=== PATIENT | female | born 1945 | race Caucasian/White ===

== ENCOUNTER 2017-08-11 14:59 | Inpatient (IN) ==
--- OUTSIDE RECORDS SUMMARY | 2017-08-11 15:07 | External Medical Summary | Referral Summary ---
:1945 Author Organization [facility] Address [address] [place] [address] [place] [address] Care Team Providers Name Role Phone Marcela Moss Primary Care Physician Encounter VC Date(s): 08/20/15 - 08/20/15 [facility] [place] [place] [phone] Discharge Diagnosis: Abdominal pain Discharge Disposition: 01-Home or Self Care Attending Physician: Marcela Moss DO Admitting Physician: Marcela Moss DO Vital Signs Most recent to oldest [Reference Range]: 1 Temperature Tympanic [36.6-38.1 degC] 36.9 degC (08/20/15 9:39 AM) Peripheral Pulse Rate [60-100 bpm] 78 bpm (08/20/15 9:39 AM) Respiratory Rate [14-20 br/min] 17 br/min (08/20/15 9:39 AM) Blood Pressure [90-140/60-90 mmHg] 120/80 mmHg (08/20/15 9:39 AM) SpO2 97 % (08/20/15 9:39 AM) Problem List Condition Effective Dates Status Health Status Informant Abdominal pain(Confirmed) Active Abnormal LFT(Confirmed) 2012 Active Anxiety(Confirmed) Active Arthralgia of the lower leg Active (finding)(Confirmed) Back pain(Confirmed) Active Backache (finding)(Confirmed) Active Cholecystitis(Confirmed) Resolved Hx of mild to moderate chronic Resolved interstitial cystitis(Confirmed) Chronic kidney disease(Confirmed) Active Chronic kidney disease stage 3 Active (disorder)(Confirmed) Hx of chronic pelvic pain, and Active urinary frequency, and urgency(Confirmed) Chronic trigonitis(Confirmed) Active Depression(Confirmed) Active Diabetes(Confirmed) Active Basal cell on chest(Confirmed) Active Dry eyes(Confirmed) Active ENTHESOPATHY OF HIP Active REGION(Confirmed) Fatigue(Confirmed) Resolved GERD(Confirmed) Active Goiter(Confirmed) Active High cholesterol(Confirmed) Active Hypothyroidism (disorder)(Confirmed) Active Hypothyroidism(Confirmed) Active Insomnia(Confirmed) Active Knee pain(Confirmed) Active Lumbosacral radiculopathy(Confirmed) Active DJD (degenerative joint disease) of Active knee(Confirmed) Overactive bladder(Confirmed) Active RUQ pain(Confirmed) 2012 Active Spinal stenosis, lumbar region, Active without neurogenic claudication(Confirmed) Thoracic or lumbosacral neuritis or Active radiculitis, unspecified(Confirmed) Hx of trabeculated Active bladder(Confirmed) Hx of obstructive urethral caruncle Active and cysts in cervix(Confirmed) Hx of urethral stenosis(Confirmed) Active Allergies, Adverse Reactions, Alerts No Known Allergies Medications ALPRAZolam 0.25 mg oral tablet 0.25 mg 1 tabs, Oral, TID, as needed for anxiety, mara riley, # 20 tabs, 3 Refill(s) Start Date: 02/15/16 Status: OrderedCeleXA 40 mg oral tablet 0.5 tabs, Oral, Daily, 0 Refill(s) Start Date: 05/02/14 Status: OrderedCITALOPRAM 40MG TAB See Instructions, TAKE ONE TABLET BY MOUTH EVERY DAY, # 90 tabs, 2 Refill(s), eRx: [facility] [id number], TAKE ONE TABLET BY MOUTH EVERY DAY Start Date: 11/25/14 Status: Orderedlevothyroxine 88 mcg (0.088 mg) oral tablet See Instructions, TAKE ONE TABLET BY MOUTH ONCE DAILY, # 90 tabs, 1 Refill(s), eRx: [facility], TAKE ONE TABLET BY MOUTH ONCE DAILY Start Date: 08/25/15 Status: Orderedlisinopril 10 mg oral tablet 10 mg 1 tabs, Oral, Daily, # 90 tabs, 1 Refill(s), Pharmacy: [facility] 2428, 1 tabs Oral Daily Start Date: 02/29/16 Status: Orderedmeloxicam 15 mg oral tablet 15 mg 1 tabs, Oral, Daily, # 15 tabs, 0 Refill(s), Pharmacy: [facility] 2428, 1 tabs Oral Daily Start Date: 10/26/15 Status: OrderedmetFORMIN 500 mg oral tablet See Instructions, 1 tabs Oral Daily,Instr:, # 90 tabs, 1 Refill(s), Pharmacy: [facility], 1 tabs Oral Daily,Instr: Start Date: 02/29/16 Status: OrderedMisc Medication vitamin B one daily, 0 Refill(s) Start Date: 05/12/14 Status: Orderedmultivitamin Daily, 0 Refill(s) Start Date: 05/12/14 Status: OrderedOsteo Bi-Flex Oral, Daily, 0 Refill(s) Start Date: 05/12/14 Status: OrderedPANTOPRAZOLE 40MG TAB See Instructions, TAKE ONE TABLET BY MOUTH EVERY DAY, # 90 tabs, 2 Refill(s), eRx: [facility] [id number], TAKE ONE TABLET BY MOUTH EVERY DAY Start Date: 07/29/14 Status: OrderedProtonix 40 mg oral delayed release tablet 40 mg 1 tabs, Oral, Daily, # 90 tabs, 3 Refill(s), Pharmacy: [facility], 1 tabs Oral Daily Start Date: 06/26/15 Status: OrderedVoltaren 1% topical gel 1 neha, Topical, QID, as needed for pain, # 100 g, 0 Refill(s), Pharmacy: [facility] Start Date: 11/17/15 Status: OrderedVoltaren 1% topical gel 1 neha, Topical, QID, # 100 g, 0 Refill(s) Start Date: 10/26/15 Status: Ordered Results No data available for this section Immunizations Vaccine Date Refusal Reason influenza virus vaccine, inactivated 07/01/14 pneumococcal 13-valent conjugate vaccine 08/03/15 pneumococcal 23-polyvalent vaccine 10/08/07 tetanus-diphth toxoids (Td) adult/adol 08/03/15 Procedures Procedure Date Related Diagnosis Body Site Right L4-5/L5-S1 Transforaminal 05/12/14 Laparoscopic cholecystectomy1 02/11/13 Right L5-S1 Transforminal injection 11/12/12 Colonoscopy Cystoscopy Hydrodistention and SLT laser vaporation and external urethral carunclectomy Tubal ligation 1Adenomyoma, benign, chronic cholecystitis Social History Social History Type Response Smoking Status Never smoker Assessment and Plan Extracted from: Title: Ambulatory Patient Education Author: Marcela Moss DO Date: 08/20/15 Emergency Medicine Abdominal Pain Many things can cause abdominal pain. Usually, abdominal pain is not caused by a disease and will improve without treatment. It can often be observed and treated at home. Your health care provider will do a physical exam and possibly order blood tests and X-rays to help determine the seriousness of your pain. However, in many cases, more time must pass before a clear cause of the pain can be found. Be fore that point, your health care provider may not know if you need more testing or further treatment. HOME CARE INSTRUCTIONS Monitor your abdominal pain for any changes. The following actions may help to alleviate any discomfort you are experiencing: Only take damr-lri-teizhtu or prescription medicines as directed by your health care provider. Do not take laxatives unless directed to do so by your health care provider. Try a clear liquid diet (broth, tea, or water) as directed by your health care provider. Slowly move to a bland diet as tolerated. SEEK MEDICAL CARE IF: You have unexplained abdominal pain. You have abdominal pain associated with nausea or diarrhea. You have pain when you urinate or have a bowel movement. You experience abdominal pain that wakes you in the night. You have abdominal pain that is worsened or improved by eating food. You have abdominal pain that is worsened with eating fatty foods. You have a fever. SEEK IMMEDIATE MEDICAL CARE IF: Your pain does not go away within 2 hours. You keep throwing up (vomiting). Your pain is felt only in portions of the abdomen, such as the right side or the left lower portion of the abdomen. You pass bloody or black tarry stools. MAKE SURE YOU: Understand these instructions. Will watch your condition. Will get help right away if you are not doing well or get worse. Document Released: 08/09/2006 Document Revised: 11/04/2014 Document Reviewed: 07/09/2014 ExitCare Patient Information 2015 [employer]. This information is not intended to replace advice given to you by your health care provider. Make sure you discuss any questions you have with your health care provider. No follow up information was provided. Extracted from: Title: Office Visit Note Author: Marcela Moss DO Date: 08/20/15 Assessment/Plan Abdominal pain Discussed anatomy and possible differential diagnosis. She certainly doesn't have an acute abdomen. After discussing options patient elected to go with MiraLAX and heat to her abd omen. A GI cocktail was offered and declined. Patient is to call or go to the emergency department with worsening symptoms such as increased pain or blood in her vomit or stool. She will let us know on Monday how she is doing. Ordered: Office Visit Level 3 Est 39905
--- OUTSIDE RECORDS SUMMARY | 2017-08-11 15:07 | External Medical Summary | Referral Summary ---
:1945 Author [facility] Address [address] [place] [address] [place] [address] Care Team Providers Name Role Phone Marcela Moss Primary Care Physician Encounter VC Date(s): 08/03/15 - 08/03/15 [facility] [place] [place] [phone] [place] Discharge Diagnosis: Anxiety Discharge Diagnosis: Depression Discharge Diagnosis: Hypothyroidism Discharge Disposition: 01-Home or Self Care Attending Physician: Marcela Moss DO Admitting Physician: Marcela Moss DO Vital Signs Most recent to oldest [Reference Range]: 1 Temperature Tympanic [36.6-38.1 degC] 36.9 degC (08/03/15 10:04 AM) Peripheral Pulse Rate [60-100 bpm] 89 bpm (08/03/15 10:04 AM) Respiratory Rate [14-20 br/min] 16 br/min (08/03/15 10:04 AM) Blood Pressure [90-140/60-90 mmHg] 120/68 mmHg (08/03/15 10:04 AM) SpO2 97 % (08/03/15 10:04 AM) Problem List Condition Effective Dates Status [...] # 20 tabs, 3 Refill(s) Start Date: 06/26/15 Status: OrderedCeleXA 40 mg oral tablet 0.5 tabs, Oral, Daily, 0 Refill(s) Start Date: 05/02/14 Status: OrderedCITALOPRAM 40MG TAB See Instructions, TAKE ONE TABLET BY MOUTH EVERY DAY, # 90 tabs, 2 Refill(s), eRx: [facility] [id number], TAKE ONE TABLET BY MOUTH EVERY DAY Start Date: 11/25/14 Status: Orderedlevothyroxine 88 mcg (0.088 mg) oral tablet See Instructions, TAKE ONE TABLET BY MOUTH ONCE DAILY, # 90 tabs, 1 Refill(s), eRx: [facility], TAKE ONE TABLET BY MOUTH ONCE DAILY Start Date: 08/25/15 Status: Orderedlisinopril 10 mg oral tablet 10 mg 1 tabs, Oral, Daily, # 90 tabs, 1 Refill(s), Pharmacy: [facility], 1 tabs Oral Daily Start Date: 08/25/15 Status: Orderedmeloxicam 15 mg oral tablet 15 mg 1 tabs, Oral, Daily, # 15 tabs, 0 Refill(s), Pharmacy: [facility], 1 tabs Oral Daily Start Date: 10/26/15 Status: OrderedmetFORMIN 500 mg oral tablet See Instructions, 1 tabs Oral Daily,Instr:PT. NEEDS AN APPT. , # 90 tabs, eRx: [facility], 1 tabs Oral Daily,Instr:PT. NEEDS AN APPT. Start Date: 12/10/15 Status: OrderedMisc Medication vitamin B one daily, 0 Refill(s) Start Date: 05/12/14 Status: Orderedmultivitamin Daily, 0 Refill(s) Start Date: 05/12/14 Status: OrderedOsteo Bi-Flex Oral, Daily, 0 Refill(s) Start Date: 05/12/14 Status: OrderedPANTOPRAZOLE 40MG TAB See Instructions, TAKE ONE TABLET BY MOUTH EVERY DAY, # 90 tabs, 2 Refill(s), eRx: [facility] [id number], TAKE ONE TABLET BY MOUTH EVERY DAY Start Date: 07/29/14 Status: OrderedProtonix 40 mg oral delayed release tablet 40 mg 1 tabs, Oral, Daily, # 90 tabs, 3 Refill(s), Pharmacy: [facility], 1 tabs Oral Daily Start Date: 06/26/15 Status: OrderedVoltaren 1% topical gel 1 neha, Topical, QID, as needed for pain, # 100 g, 0 Refill(s), Pharmacy: [facility] Start Date: 11/17/15 Status: OrderedVoltaren [...] Patient Education Author: Marcela Moss DO Date: 08/03/15 Family Medicine Hypothyroidism The thyroid is a large gland located in the lower front of your neck. The thyroid gland helps control metabolism. Metabolism is how your body handles food. It controls metabolism with the hormone thyrox ine. When this gland is underactive (hypothyroid), it produces too little hormone. CAUSES These include: Absence or destruction of thyroid tissue. Goiter due to iodine deficiency. Goiter due to medications. Congenital defects (since ). Problems with the pituitary. This causes a lack of TSH (thyroid stimulating hormone). This hormone tells the thyroid to collar turner more hormone. SYMPTOMS Lethargy (feeling as though you have no energy) Cold intolerance Weight gain (in spite of normal food intake) Dry skin Coarse hair Menstrual irregularity (if severe, may lead to infertility) Slowing of thought processes Cardiac problems are also caused by insufficient amounts of thyroid hormone. Hypothyroidism in the is cretinism, and is an extreme form. It is important that this form be treated adequately and immediately or it will lead rapidly to retarded physical and mental development. DIAGNOSIS To prove hypothyroidism, your caregiver may do blood tests and ultrasound tests. Sometimes the signs are hidden. It may be necessary for your caregiver to watch this illness with blood tests either before or after diagnosis and treatment. TREATMENT Low levels of thyroid hormone are increased by using synthetic thyroid hormone. This is a safe, effective treatment. It usually takes about four weeks to gain the full effects of the medication. After y ou have the full effect of the medication, it will generally take another four weeks for problems to leave. Your caregiver may start you on low doses. If you have had heart problems the dose may be grad ually increased. It is generally not an emergency to get rapidly to normal. HOME CARE INSTRUCTIONS Take your medications as your caregiver suggests. Let your caregiver know of any medications you are taking or start taking. Your caregiver will help you with dosage schedules. As your condition improves, your dosage needs may increase. It will be necessary to have continuing blood tests as suggested by your caregiver. Report all suspected medication side effects to your caregiver. SEEK MEDICAL CARE IF: Seek medical care if you develop: Sweating. Tremulousness (tremors). Anxiety. Rapid weight loss. Heat intolerance. Emotional swings. Diarrhea. Weakness. SEEK IMMEDIATE MEDICAL CARE IF: You develop chest pain, an irregular heart beat (palpitations), or a rapid heart beat. MAKE SURE YOU: Understand these instructions. Will watch your condition. Will get help right away if you are not doing well or get worse. Document Released: 10/30/2006 Document Revised: 01/21/2013 Document Reviewed: 06/19/2009 ExitCare Patient Information 2015 [employer]. This information is not intended to replace advice given to you by your health care provider. Make sure you discuss any questions you have with your health care provider. No follow up information was provided. Extracted from: Title: Office Visit Note Author: Marcela Moss DO Date: 08/03/15 Assessment/Plan Anxiety stable, continue xanax as needed Ordered: Office Visit Level 4 Est 70594 Depression stable , offered counseling if she needed it, declines at this time. Ordered: Office Visit Level 4 Est 70334 Hypothyroidism doing well, continue current medication, RTC 6 mo with labs to recheck. Ordered: Office Visit Level 4 Est 82499 Immunization due tdap and pcv 13 today.
--- OUTSIDE RECORDS SUMMARY | 2017-08-11 15:07 | External Medical Summary | Referral Summary ---
:1945 Author [facility] Address [address] [place] [address] [place] [phone] Care Team Providers Name Role Phone Marcela Moss Primary Care Physician Encounter VC Date(s): 10/26/15 - 10/26/15 [facility] [place] [place] [phone] [place] Discharge Disposition: 01-Home or Self Care Attending Physician: Catalino Loving APRN Admitting Physician: Catalino Loving APRN Vital Signs Most recent to oldest [Reference Range]: 1 Peripheral Pulse Rate [60-100 bpm] 87 bpm (10/26/15 10:08 AM) Respiratory Rate [14-20 br/min] 18 br/min (10/26/15 10:08 AM) Blood Pressure [90-140/60-90 mmHg] 130/90 mmHg (10/26/15 10:08 AM) SpO2 98 % (10/26/15 10:08 AM) Problem List Condition Effective Dates Status [...] DAY, # 90 tabs, 2 Refill(s), eRx: [id number], TAKE ONE TABLET BY MOUTH EVERY DAY Start Date: 11/25/14 Status: Orderedlevothyroxine 88 mcg (0.088 mg) oral tablet See Instructions, TAKE ONE TABLET BY MOUTH ONCE DAILY, # 90 tabs, 1 Refill(s), eRx: [facility] 2428, TAKE ONE TABLET BY MOUTH ONCE DAILY Start Date: 08/25/15 Status: Orderedlisinopril 10 mg oral tablet 10 mg 1 tabs, Oral, Daily, # 90 tabs, 1 Refill(s), Pharmacy: [facility], 1 tabs Oral Daily Start Date: 08/25/15 Status: Orderedmeloxicam 15 mg oral tablet 15 mg 1 tabs, Oral, Daily, # 15 tabs, 0 Refill(s), Pharmacy: [facility], 1 tabs Oral Daily Start Date: 10/26/15 Status: OrderedmetFORMIN 500 mg oral tablet See Instructions, 1 tabs Oral Daily,Instr:PT. NEEDS AN APPT. /AUG., # 90 tabs, eRx: [facility], 1 tabs Oral Daily,Instr:PT. NEEDS AN APPT. Start Date: 09/14/15 Status: OrderedMisc Medication vitamin B one daily, 0 Refill(s) Start Date: 05/12/14 Status: Orderedmultivitamin Daily, 0 Refill(s) Start Date: 05/12/14 Status: OrderedOsteo Bi-Flex Oral, Daily, 0 Refill(s) Start Date: 05/12/14 Status: OrderedPANTOPRAZOLE 40MG TAB See Instructions, TAKE ONE TABLET BY MOUTH EVERY DAY, # 90 tabs, 2 Refill(s), eRx: [facility] [id number], TAKE ONE TABLET BY MOUTH EVERY DAY Start Date: 07/29/14 Status: OrderedProtonix 40 mg oral delayed release tablet 40 mg 1 tabs, Oral, Daily, # 90 tabs, 3 Refill(s), Pharmacy: [facility], 1 tabs Oral Daily [...] Smoking Status Never smoker Assessment and Plan No data available for this section
--- OUTSIDE RECORDS SUMMARY | 2017-08-11 15:07 | External Medical Summary | Referral Summary ---
:1945 Author Organization [facility] Address [address] [place] [address] Care Team Providers Name Role Phone Marcela Moss Primary Care Physician Encounter VC Date(s): 09/01/15 - 09/01/15 [facility] [address] [place] [address]- [phone] Discharge Diagnosis: Lumbosacral radiculopathy Discharge Diagnosis: Spinal stenosis, lumbar region, without neurogenic claudication Discharge Disposition: 01-Home or Self Care Attending Physician: Jhon Cali MD Admitting Physician: Jhon Cali MD Referring Physician: Marcela Moss DO Vital Signs Most recent to oldest [Reference Range]: 1 Respiratory Rate [14-20 br/min] 16 br/min (09/01/15 9:27 AM) SpO2 99 % (09/01/15 9:27 AM) Problem List Condition Effective Dates Status [...] DAY, # 90 tabs, 2 Refill(s), eRx: [facility] [id number], TAKE ONE TABLET BY MOUTH EVERY DAY Start Date: 11/25/14 Status: Orderedlevothyroxine 88 mcg (0.088 mg) oral tablet See Instructions, TAKE ONE TABLET BY MOUTH ONCE DAILY, # 90 tabs, 1 Refill(s), eRx: [facility], TAKE ONE TABLET BY MOUTH ONCE DAILY Start Date: 08/25/15 Status: Orderedlisinopril 10 mg oral tablet 10 mg 1 tabs, Oral, Daily, # 90 tabs, 1 Refill(s), Pharmacy: [facility], 1 tabs Oral Daily Start Date: 02/29/16 Status: Orderedmeloxicam 15 mg oral tablet 15 mg 1 tabs, Oral, Daily, # 15 tabs, 0 Refill(s), Pharmacy: [facility], 1 tabs Oral Daily Start Date: 10/26/15 Status: OrderedmetFORMIN 500 mg oral tablet See Instructions, 1 tabs Oral Daily,Instr:, # 90 tabs, 1 Refill(s), Pharmacy: [facility], 1 tabs Oral Daily,Instr: Start Date: 02/29/16 Status: OrderedMisc Medication vitamin B one daily, 0 Refill(s) Start Date: 05/12/14 Status: Orderedmultivitamin Daily, 0 Refill(s) Start Date: 05/12/14 Status: OrderedOsteo Bi-Flex Oral, Daily, 0 Refill(s) Start Date: 05/12/14 Status: OrderedPANTOPRAZOLE 40MG TAB See Instructions, TAKE ONE TABLET BY MOUTH EVERY DAY, # 90 tabs, 2 Refill(s), eRx: [facility] [id number], TAKE ONE TABLET BY MOUTH EVERY DAY Start Date: 07/29/14 Status: OrderedProtonix 40 mg oral delayed release tablet 40 mg 1 tabs, Oral, Daily, # 90 tabs, 3 Refill(s), Pharmacy: [facility], 1 tabs Oral Daily Start Date: 06/26/15 Status: OrderedVoltaren 1% topical gel 1 neha, Topical, QID, as needed for pain, # 100 g, 0 Refill(s), Pharmacy: [facility] Start Date: 11/17/15 Status: OrderedVoltaren 1% topical gel 1 neha, Topical, QID, # 100 g, 0 Refill(s) Start Date: 10/26/15 Status: Ordered Results No data available for this section Immunizations Vaccine Date Refusal Reason influenza virus vaccine, inactivated 07/01/14 pneumococcal 13-valent conjugate vaccine 08/03/15 pneumococcal 23-polyvalent vaccine 10/08/07 tetanus-diphth toxoids (Td) adult/adol 08/03/15 Procedures Procedure Date Related Diagnosis Body Site Injection(s), anesthetic agent and/or steroid, 09/01/15 transforaminal epidural, with imaging guidance (fluoroscopy or CT); lumbar or sacral, each additional level (List separately in addition to code for primary procedure)..... Injection(s), anesthetic agent and/or steroid, 09/01/15 transforaminal epidural, with imaging guidance (fluoroscopy or CT); lumbar or sacral, single level Right L4-5/L5-S1 Transforaminal 05/12/14 Laparoscopic cholecystectomy1 02/11/13 Right L5-S1 Transforminal injection 11/12/12 Colonoscopy Cystoscopy Hydrodistention and SLT laser vaporation and external urethral carunclectomy Tubal ligation 1Adenomyoma, benign, chronic cholecystitis Social History Social History Type Response Smoking Status Never smoker Assessment and Plan Extracted from: Title: Ambulatory Patient Education Author: Marisol Fuentes RN Date: 09/01/15 Procedures Epidural Steroid Injection An epidural steroid injection is given to relieve pain in your neck, back, or legs that is caused by the irritation or swelling of a nerve root. This procedure involves injecting a steroid and numbing m edicine (anesthetic) into the epidural space. The epidural space is the space between the outer covering of your spinal cord and the bones that form your backbone (vertebra). LET YOUR HEALTH CARE PROVIDER KNOW ABOUT: Any allergies you have. All medicines you are taking, including vitamins, herbs, eye drops, creams , and [id number] medicines such as aspirin. Previous problems you or members of your family have had with the use of anesthetics. Any blood disorders or blood clotting disorders you have. Previous surgeries you have had. Medical conditions you have. RISKS AND COMPLICATIONS Generally, this is a safe procedure. However, as with any procedure, complications can occur. Possible complications of epidural steroid injection include: Headache. Bleeding. Infection. Allergic reaction to the medicines. Damage to your nerves. The response to this procedure depends on the underlying cause of the pain and its duration. People who have long-term (chronic) pain are less likely to benefit from epidural steroids than are those people whose pain comes on strong and suddenly. BEFORE THE PROCEDURE Ask your health care provider about changing or stopping your regular medicines. You may be advised to stop taking blood-thinning medicines a few days before the procedure. You may be given medicines to reduce anxiety. Arrange for someone to take you home after the procedure. PROCEDURE You will remain awake during the procedure. You may receive medicine to make you relaxed. You will be asked to lie on your stomach. The injection site will be cleaned. The injection site will be numbed with a medicine (local anesthetic). A needle will be injected through your skin into the epidural space. Your health care provider will use an X-ray machine to ensure that the steroid is delivered closest to the affected nerve. You may have minimal discomfort at this time. Once the needle is in the right position, the local anesthetic and the steroid will be injected into the epidural space. The needle will then be removed and a bandage will be applied to the injection site. AFTER THE PROCEDURE You may be monitored for a short time before you go home. You may feel weakness or numbness in your arm or leg, which disappears within hours. You may be allowed to eat, drink, and take your regular medicine. You may have soreness at the site of the injection. Document Released: 02/05/2009 Document Revised: 07/02/2014 Document Reviewed: 04/18/2014 [employer] Patient Information 2015 test company [facility]. This information is not intended to replace advice given to you by your health care provider. Make sure you discuss any questions you have with your health care provider. No follow up information was provided.
--- OUTSIDE RECORDS SUMMARY | 2017-08-11 15:07 | External Medical Summary | Referral Summary ---
:1945 Author Organization [facility] Address [address] [place] [address] [place] [address] Care Team Providers Name Role Phone Marcela Moss Primary Care Physician Encounter VC Date(s): 08/16/16 - 08/16/16 [facility] [place] [address] Discharge Diagnosis: Chronic kidney disease Discharge Diagnosis: Hypothyroidism (disorder) Discharge Diagnosis: Depression Discharge Diagnosis: Diabetes Discharge Disposition: 01-Home or Self Care Attending Physician: Marcela Moss DO Admitting Physician: Marcela Moss DO Vital Signs Most recent to oldest [Reference Range]: 1 Temperature Tympanic [36.6-38.1 degC] 36.9 degC (08/16/16 10:20 AM) Peripheral Pulse Rate [60-100 bpm] 80 bpm (08/16/16 10:20 AM) Respiratory Rate [14-20 br/min] 17 br/min (08/16/16 10:20 AM) Blood Pressure [90-140/60-90 mmHg] 128/70 mmHg (08/16/16 10:20 AM) SpO2 98 % (08/16/16 10:20 AM) Problem List Condition Effective Dates Status [...] Daily, 0 Refill(s) Start Date: 05/02/14 Status: Orderedlevothyroxine 88 mcg (0.088 mg) oral tablet See Instructions, TAKE ONE TABLET BY MOUTH ONCE DAILY, # 90 tabs, 1 Refill(s), Pharmacy: [place] [id number], TAKE ONE TABLET BY MOUTH ONCE DAILY Start Date: 03/18/16 Status: OrderedmetFORMIN 500 mg oral tablet See Instructions, 1 tabs Oral Daily,Instr:, # 90 tabs, 1 Refill(s), Pharmacy: [facility] 24[facility], 1 tabs Oral Daily,Instr: Start Date: 02/29/16 Status: Orderedpantoprazole 40 mg oral delayed release tablet See Instructions, TAKE ONE TABLET BY MOUTH ONCE DAILY, # 90 tabs, eRx: [facility] 2428, TAKE ONE TABLET BY MOUTH ONCE DAILY Start Date: 06/29/16 Status: OrderedVoltaren 1% topical gel 1 neha, Topical, QID, as needed for pain, # 100 g, 0 Refill(s), Pharmacy: [place] [address] Start Date: 11/17/15 Status: Ordered Results Chemistry Most recent to oldest [Reference Range]: 1 Sodium Lvl [135-144 mEq/L] 142 mEq/L (08/16/16 10:56 AM) Potassium Lvl [3.5-5.2 mEq/L] 4.1 mEq/L (08/16/16 10:56 AM) Chloride [99-111 mEq/L] 107 mEq/L (08/16/16 10:56 AM) CO2 [22-31 mEq/L] 26 mEq/L (08/16/16 10:56 AM) AGAP [3-20] 9 (08/16/16 10:56 AM) BUN [10-20 mg/dL] 9 mg/dL *LOW* (08/16/16 10:56 AM) Glucose Lvl [70-99 mg/dL] 107 mg/dL *HI* (08/16/16 10:56 AM) Creatinine Lvl [0.57-1.11 mg/dL] 0.87 mg/dL (08/16/16 10:56 AM) eGFR [>60 mL/min] >60 mL/min 1 (08/16/16 10:56 AM) Calcium Lvl [8.9-10.5 mg/dL] 9.4 mg/dL (08/16/16 10:56 AM) Hgb A1c [4.1-5.6 %] 6.0 % *HI* (08/16/16 10:56 AM) eAvg Glucose 125.5 mg/dL (08/16/16 10:56 AM) 1Result Comment: Multiply eGFR results by 1.21 for race. Immunizations Vaccine Date Refusal Reason influenza virus [...] smoker Assessment and Plan Extracted from: Title: Office Visit Note Author: Marcela Moss DO Date: 08/16/16 Assessment/Plan Chronic kidney disease BMP today, further recommendations after results, if results are notbothersome return to clinic in 6 months. Ordered: Office Visit Level 4 Est 78619 Depression Continue current regimen. Return to clinic 6 months. Ordered: Office Visit Level 4 Est 11052 Diabetes BMP and A1c today with further recommendations after results, if A1c continues in control she will return to clinic in 6 months. Ordered: Basic Metabolic Panel Hemoglobin A1c Office Visit Level 4 Est 37514 Hypothyroidism (disorder) Stable, return to clinic in 6 months with labs at that time. Ordered: Office Visit Level 4 Est 25222 Extracted from: Title: Ambulatory Patient Education Author: Marcela Moss DO Date: 08/16/16 Family Medicine Diabetes Mellitus and Food It is important for you to manage your blood sugar (glucose) level. Your blood glucose level can be greatly affected by what you eat. Eating healthier foods in the appropriate amounts throughout the day at about the same time each day will help you control your blood glucose level. It can also help slow or prevent worsening of your diabetes mellitus. Healthy eating may even help you improve the level of your blood pressure and reach or maintain a healthy weight. General recommendations for healthful eating and cooking habits include: Eating meals and snacks regularly. Avoid going long periods of time without eating to lose weight. Eating a diet that consists mainly of plant-based foods, such as fruits , vegetables, nuts, legumes, and whole grains. Using low-heat cooking methods, such as baking, instead of high-heat cooking methods, such as deep frying. Work with your dietitian to make sure you understand how to use the Nutrition Facts information on food labels. HOW CAN FOOD AFFECT ME? Carbohydrates Carbohydrates affect your blood glucose level more than any other type of food. Your dietitian will help you determine how many carbohydrates to eat at each meal and teach you how to count carbohydrates . Counting carbohydrates is important to keep your blood glucose at a healthy level, especially if you are using insulin or taking certain medicines for diabetes mellitus. Alcohol Alcohol can cause sudden decreases in blood glucose (hypoglycemia), especially if you use insulin or take certain medicines for diabetes mellitus. Hypoglycemia can be a life-threatening condition. Sympt oms of hypoglycemia (sleepiness, dizziness, and disorientation) are similar to symptoms of having too much alcohol. If your health care provider has given you approval to drink alcohol, do so in moderation and use the following guidelines: Women should not have more than one drink per day, and men should not have more than two drinks per day. One drink is equal to: 12 oz of beer. 5 oz of wine. 1 oz of hard liquor. Do not drink on an empty stomach. Keep yourself hydrated. Have water, diet soda, or unsweetened iced tea. Regular soda, juice, and other mixers might contain a lot of carbohydrates and should be counted. WHAT FOODS ARE NOT RECOMMENDED? As you make food choices, it is important to remember that all foods are not the same. Some foods have fewer nutrients per serving than other foods, even though they might have the same number of calori es or carbohydrates. It is difficult to get your body what it needs when you eat foods with fewer nutrients. Examples of foods that you should avoid that are high in calories and carbohydrates but low in nutrients include: Trans fats (most processed foods list trans fats on the Nutrition Facts label). Regular soda. Juice. Candy. Sweets, such as cake, pie, doughnuts, and cookies. Fried foods. WHAT FOODS CAN I EAT? Eat nutrient-rich foods, which will nourish your body and keep you healthy. The food you should eat also will depend on several factors, including: The calories you need. The medicines you take. Your weight. Your blood glucose level. Your blood pressure level. Your cholesterol level. You should eat a variety of foods, including: Protein. Lean cuts of meat. Proteins low in saturated fats, such as fish, egg whites, and beans. Avoid processed meats. Fruits and vegetables. Fruits and vegetables that may help control blood glucose levels, such as apples, mangoes, and yams. Dairy products. Choose fat-free or low-fat dairy products, such as milk, yogurt, and cheese. Grains, bread, pasta, and rice. Choose whole grain products, such as multigrain bread, whole oats, and brown rice. These foods may help control blood pressure. Fats. Foods containing healthful fats, such as nuts, avocado, olive oil, canola oil, and fish. DOES EVERYONE WITH DIABETES MELLITUS HAVE THE SAME MEAL PLAN? Because every person with diabetes mellitus is different, there is not one meal plan that works for everyone. It is very important that you meet with a dietitian who will help you create a meal plan that is just right for you. This information is not intended to replace advice given to you by your health care provider. Make sure you discuss any questions you have with your health care provider. Document Released: 07/27/2006 Document Revised: 11/20/2015 Document Reviewed: 09/26/2014 [employer] Patient Information 2016 [employer], [facility]. No follow up information was provided.
--- OUTSIDE RECORDS SUMMARY | 2017-08-11 15:07 | External Medical Summary | Referral Summary ---
:1945 Author Organization [facility] Address [address] [place] [address] Care Team Providers Name Role Phone Marcela Moss Primary Care Physician Encounter VC Date(s): 09/15/15 - 09/15/15 [facility] [address] [place] [address]- [phone] Discharge Diagnosis: ENTHESOPATHY OF HIP REGION Discharge Disposition: 01-Home or Self Care Attending Physician: Jhon Cali MD Admitting Physician: Jhon Cali MD Referring Physician: Marcela Moss DO Vital Signs No data available for this section Problem List Condition Effective Dates Status Health Status Informant Abdominal pain(Confirmed) Active Abnormal LFT(Confirmed) 2013 Active Anxiety(Confirmed) Active Arthralgia of the lower [...] Active knee(Confirmed) Overactive bladder(Confirmed) Active RUQ pain(Confirmed) 2013 Active Spinal stenosis, lumbar region, Active without [...] DAY, # 90 tabs, 2 Refill(s), eRx: [facility] [id number], TAKE ONE TABLET BY MOUTH EVERY DAY Start Date: 11/25/14 Status: Orderedlevothyroxine 88 mcg (0.088 mg) oral tablet See Instructions, TAKE ONE TABLET BY MOUTH ONCE DAILY, # 90 tabs, 1 Refill(s), eRx: [facility], TAKE ONE TABLET BY MOUTH ONCE DAILY Start Date: 08/25/15 Status: Orderedlisinopril 10 mg oral tablet 10 mg 1 tabs, Oral, Daily, # 90 tabs, 1 Refill(s), Pharmacy: [facility], 1 tabs Oral Daily Start Date: 08/25/15 Status: OrderedmetFORMIN 500 mg oral tablet See Instructions, 1 tabs Oral Daily,Instr:PT. NEEDS AN APPT. , # 90 tabs, eRx: [facility], 1 tabs Oral Daily,Instr:PT. NEEDS AN APPT. Start Date: 09/14/15 Status: OrderedMisc Medication vitamin B one daily, 0 Refill(s) Start Date: 05/12/14 Status: Orderedmultivitamin Daily, 0 Refill(s) Start Date: 05/12/14 Status: OrderedOsteo Bi-Flex Oral, Daily, 0 Refill(s) Start Date: 05/12/14 Status: OrderedPANTOPRAZOLE 40MG TAB See Instructions, TAKE ONE TABLET BY MOUTH EVERY DAY, # 90 tabs, 2 Refill(s), eRx: [facility] [id number], TAKE ONE TABLET BY MOUTH EVERY DAY Start Date: 07/29/14 Status: OrderedProtonix 40 mg oral delayed release tablet 40 mg 1 tabs, Oral, Daily, # 90 tabs, 3 Refill(s), Pharmacy: [facility], 1 tabs Oral Daily Start Date: 06/26/15 Status: Ordered Results No data available for this section Immunizations Vaccine Date Refusal Reason influenza virus vaccine, inactivated 07/01/14 pneumococcal 13-valent conjugate vaccine 08/03/15 pneumococcal 23-polyvalent vaccine 10/08/07 tetanus-diphth toxoids (Td) adult/adol 08/03/15 Procedures Procedure Date Related Diagnosis Body Site Arthrocentesis, aspiration and/or injection, 09/15/15 major joint or bursa (eg, shoulder, hip, knee, subacromial bursa); without ultrasound guidance Right L4-5/L5-S1 Transforaminal 05/12/14 Laparoscopic cholecystectomy1 02/11/13 Right L5-S1 Transforminal injection 11/12/12 Colonoscopy Cystoscopy Hydrodistention and SLT laser vaporation and external urethral carunclectomy Tubal ligation 1Adenomyoma, benign, chronic cholecystitis Social History Social History Type Response Smoking Status Never smoker Assessment and Plan No data available for this section
--- OUTSIDE RECORDS SUMMARY | 2017-08-11 15:07 | External Medical Summary | Referral Summary ---
:1945 Author Organization [facility] Address [address] [place] [address] Care Team Providers Name Role Phone Marcela Moss Primary Care Physician Encounter VC Date(s): 08/27/15 - 08/27/15 [facility] [address] [place] [address]- [phone] Discharge Diagnosis: Lumbar radiculopathy Discharge Diagnosis: Trochanteric bursitis Discharge Diagnosis: Lumbago Discharge Diagnosis: Disc degeneration, lumbar Discharge Diagnosis: Spinal stenosis, lumbar region, without neurogenic claudication Discharge Disposition: 01-Home or Self Care Attending Physician: Hussein Mclain Admitting Physician: Hussein Mclain Vital Signs Most recent to oldest [Reference Range]: 1 Blood Pressure [90-140/60-90 mmHg] 120/80 mmHg (08/27/15 9:37 AM) Problem List Condition Effective Dates Status [...] Hypothyroidism(Confirmed) Active Insomnia(Confirmed) Active Knee pain(Confirmed) Active DJD (degenerative joint disease) of Active [...] # 90 tabs, 2 Refill(s), eRx: [facility] [id number], TAKE ONE TABLET BY MOUTH EVERY DAY Start Date: 11/25/14 Status: Orderedlevothyroxine 88 mcg (0.088 mg) oral tablet See Instructions, TAKE ONE TABLET BY MOUTH ONCE DAILY, # 90 tabs, 1 Refill(s), eRx: [facility], TAKE ONE TABLET BY MOUTH ONCE DAILY Start Date: 08/25/15 Status: Orderedlisinopril 10 mg oral tablet 10 mg 1 tabs, Oral, Daily, # 90 tabs, 1 Refill(s), Pharmacy: [facility], 1 tabs Oral Daily Start Date: 08/25/15 Status: OrderedmetFORMIN 500 mg oral tablet 500 mg 1 tabs, Oral, Daily, PT. NEEDS AN APPT. /AUG., # 90 tabs, 0 Refill(s ), Pharmacy: [facility], PT. NEEDS AN APPT. IN /AUG., 1 tabs Oral Daily,Instr:PT. NEEDS AN APPT. /AUG. Start Date: 06/30/15 Status: OrderedMisc Medication vitamin B one daily, 0 Refill(s) Start Date: 05/12/14 Status: Orderedmultivitamin Daily, 0 Refill(s) Start Date: 05/12/14 Status: OrderedOsteo Bi-Flex Oral, Daily, 0 Refill(s) Start Date: 05/12/14 Status: OrderedPANTOPRAZOLE 40MG TAB See Instructions, TAKE ONE TABLET BY MOUTH EVERY DAY, # 90 tabs, 2 Refill(s), eRx: [facility] [id number], TAKE ONE TABLET BY MOUTH EVERY DAY Start Date: 07/29/14 Status: OrderedProtonix 40 mg oral delayed release tablet 40 mg 1 tabs, Oral, Daily, # 90 tabs, 3 Refill(s), Pharmacy: [facility], 1 tabs Oral Daily Start [...] Extracted from: Title: Office Visit Note Author: Hussein Mclain Date: 08/27/15 Assessment/Plan Disc degeneration, lumbar Lumbago Lumbar radiculopathy Spinal stenosis, lumbar region, without neurogenic claudication Trochanteric bursitis I discussed the patient's plan of care with Dr. Cali. I also reviewed the patient's most recent lumbar MRI with the patient and also reviewed this with Dr. Cali. According to this MRI the patient has d egenerative discs with disc bulging L5-S1 asymmetrically into the base the right neuroforamen with moderate narrowing of the neuroforamen. L4 5 showing severe disc space noting with disc bulgingmild narrowing of the right neuroforamen. I also reviewed her x-ray results from her knees and hips and showing osteoarthritic changes in the knees as well as in the right hip. Clinically she does not a ppear to have any significant symptoms in the actual hip joint but seems to have a combination of lumbar radiculopathy as well as right trochanteric bursitis. She did benefit from previous lumbar epid uralby greater than 50 percent for approximately a year. Dr. Cali recommends proceeding withrepeating her right L4 5 and L5-S1 transforaminal epidural steroid injectionfollowed by right trochanteric bursitis injection under ultrasound. The patient does u nderstand the rationale for the procedure as well as possible complications including bleeding, infection, allergic reaction, nerve irritation or damage, and risk of spinal headache. The patient also un derstands other remote possible complications including paraplegia, quadriplegia, , stroke, and seizure. The patient voiced understanding and wishes to proceed.The patient requests a local anesth etic. The patient will follow-up in 2 months following the injection. If the patient fails to improve or worsening symptoms, they will follow-up sooner. 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 If this doeshelp and she wants to continue she will plan on checking with her primary care for prescription. She can not take oral NSAIDs because of her chronic kidney disease. The patient voiced understanding and agrees to the above plan. The above was in discussion with Dr. Cali.
--- OUTSIDE RECORDS SUMMARY | 2017-08-11 15:07 | External Medical Summary | Referral Summary ---
:1945 Author Organization [facility] Address [address] [place] [address] [place] [address] Care Team Providers Name Role Phone Marcela Moss Primary Care Physician Encounter VC Date(s): 08/20/15 - 08/20/15 [facility] [address] [place] [address] Discharge Diagnosis: [...] # 90 tabs, 2 Refill(s), eRx: [facility] [id number], TAKE ONE TABLET BY MOUTH EVERY DAY Start Date: 11/25/14 Status: Orderedeszopiclone 1 mg oral tablet 1 mg 1 tabs, Oral, Bedtime (once a day), as needed for insomnia, Yoana Galan, # 30 tabs, 0 Refill(s) Start Date: 03/31/15 Status: Orderedlisinopril 10 mg oral tablet 1 tabs, Oral, Daily, # 90 tabs, 3 Refill(s), Pharmacy: [facility], 1 tabs Oral Daily Start Date: 07/03/14 Status: OrderedmetFORMIN 500 mg oral tablet 500 mg 1 tabs, Oral, Daily, PT. NEEDS AN APPT. /AUG., # 90 tabs, 0 Refill(s ), Pharmacy: [facility], PT. NEEDS AN APPT. IN /, 1 tabs Oral Daily,Instr:PT. NEEDS AN APPT. /AUG. Start Date: 06/30/15 Status: OrderedMisc Medication vitamin B one daily, 0 Refill(s) Start Date: 05/12/14 Status: Orderedmultivitamin Daily, 0 Refill(s) Start Date: 05/12/14 Status: OrderedOsteo Bi-Flex Oral, Daily, 0 Refill(s) Start Date: 05/12/14 Status: OrderedPANTOPRAZOLE 40MG TAB See Instructions, TAKE ONE TABLET BY MOUTH EVERY DAY, # 90 tabs, 2 Refill(s), eRx: [facility] [id number], TAKE ONE TABLET BY MOUTH EVERY DAY Start Date: 07/29/14 Status: OrderedProtonix 40 mg oral delayed release tablet 40 mg 1 tabs, Oral, Daily, # 90 tabs, 3 Refill(s), Pharmacy: [facility], 1 tabs Oral Daily Start Date: 06/26/15 Status: OrderedSynthroid 88 mcg (0.088 mg) oral tablet 1 tabs, Oral, Daily, # 90 tabs, 1 Refill(s), Pharmacy: [facility], 1 tabs Oral Daily Start Date: 09/26/14 Status: Ordered Results No data available for [...] any discomfort you are experiencing: Only take sjrr-flx-cqpdwlc or prescription medicines as directed by your [...] 08/09/2006 Document Revised: 11/04/2014 Document Reviewed: 07/09/2014 [facility] Patient Information 2015 [facility], [facility]. This information is not intended to replace [...] doing. Ordered: Office Visit Level 3 Est 51483
--- OUTSIDE RECORDS SUMMARY | 2017-08-11 15:07 | External Medical Summary | Referral Summary ---
:1945 Author Organization [facility] Address [address] [place] [address] Care Team Providers Name Role Phone Marcela Moss Primary Care Physician Encounter VC Date(s): 09/01/15 - 09/01/15 [facility] [address] [place] [address]- [phone] Discharge Diagnosis: Lumbosacral radiculopathy Discharge Diagnosis: Spinal [...] DAY, # 90 tabs, 2 Refill(s), eRx: [facility] [id number], TAKE ONE TABLET BY MOUTH EVERY DAY Start Date: 11/25/14 Status: Orderedlevothyroxine 88 mcg (0.088 mg) oral tablet See Instructions, TAKE ONE TABLET BY MOUTH ONCE DAILY, # 90 tabs, 1 Refill(s), eRx: [facility], TAKE ONE TABLET BY MOUTH ONCE DAILY Start Date: 08/25/15 Status: Orderedlisinopril 10 mg oral tablet 10 mg 1 tabs, Oral, Daily, # 90 tabs, 1 Refill(s), Pharmacy: [facility], 1 tabs Oral Daily Start Date: 08/25/15 Status: OrderedmetFORMIN 500 mg oral tablet 500 mg 1 tabs, Oral, Daily, PT. NEEDS AN APPT. /AUG., # 90 tabs, 0 Refill(s ), Pharmacy: [facility], PT. NEEDS AN APPT. [...] DAY, # 90 tabs, 2 Refill(s), eRx: [facility] [id number], TAKE ONE TABLET BY MOUTH EVERY DAY Start Date: 07/29/14 Status: OrderedProtonix 40 mg oral delayed release tablet 40 mg 1 tabs, Oral, Daily, # 90 tabs, 3 Refill(s), [facility], 1 tabs Oral Daily [...] vitamins, herbs, eye drops, creams , and sacp-brw-nzimzqk medicines such as aspirin. Previous problems you [...] 02/05/2009 Document Revised: 07/02/2014 Document Reviewed: 04/18/2014 [facility] Patient Information 2015 [employer]. This information is not intended to replace advice given to you by your health care provider. Make sure you discuss any questions you have with your health care provider. No follow up information was provided.
--- OUTSIDE RECORDS SUMMARY | 2017-08-11 15:07 | External Medical Summary | Referral Summary ---
:1945 Author Organization [facility] Address [address] [place] [address] Care Team Providers Name Role Phone Marcela Moss Primary Care Physician Encounter VC Date(s): 08/27/15 - 08/27/15 [facility] [address] [place] [address]- [phone] Discharge Diagnosis: Lumbar radiculopathy Discharge Diagnosis: Trochanteric [...] DAY, # 90 tabs, 2 Refill(s), eRx: [facility] [id number], TAKE ONE TABLET BY MOUTH EVERY DAY Start Date: 11/25/14 Status: Orderedlevothyroxine 88 mcg (0.088 mg) oral tablet See Instructions, TAKE ONE TABLET BY MOUTH ONCE DAILY, # 90 tabs, 1 Refill(s), eRx: [facility], TAKE ONE TABLET BY MOUTH ONCE DAILY Start Date: 08/25/15 Status: Orderedlisinopril 10 mg oral tablet 10 mg 1 tabs, Oral, Daily, # 90 tabs, 1 Refill(s), Pharmacy: [facility], 1 tabs Oral Daily Start Date: 02/29/16 Status: Orderedmeloxicam 15 mg oral tablet 15 mg 1 tabs, Oral, Daily, # 15 tabs, 0 Refill(s), Pharmacy: [facility], 1 tabs Oral Daily Start Date: 10/26/15 Status: OrderedmetFORMIN 500 mg oral tablet See Instructions, 1 tabs Oral Daily,Instr:, # 90 tabs, 1 Refill(s), Pharmacy: [facility], 1 tabs Oral Daily,Instr: Start Date: 02/29/16 Status: OrderedMisc Medication vitamin B one daily, 0 Refill(s) Start Date: 05/12/14 Status: Orderedmultivitamin Daily, 0 Refill(s) Start Date: 05/12/14 Status: OrderedOsteo Bi-Flex Oral, Daily, 0 Refill(s) Start Date: 05/12/14 Status: OrderedPANTOPRAZOLE 40MG TAB See Instructions, TAKE ONE TABLET BY MOUTH EVERY DAY, # 90 tabs, 2 Refill(s), eRx: [facility] [id number], TAKE ONE TABLET BY MOUTH EVERY DAY Start Date: 07/29/14 Status: OrderedProtonix 40 mg oral delayed release tablet 40 mg 1 tabs, Oral, Daily, # 90 tabs, 3 Refill(s), Pharmacy: [facility], 1 tabs Oral Daily Start Date: 06/26/15 Status: OrderedVoltaren 1% topical gel 1 neha, Topical, QID, as needed for pain, # 100 g, 0 Refill(s), Pharmacy: [facility] Start Date: 11/17/15 Status: [...]
--- OUTSIDE RECORDS SUMMARY | 2017-08-11 15:07 | External Medical Summary | Referral Summary ---
:1945 Author Organization [facility] Address [address] [place] [address] Care Team Providers Name Role Phone Marcela Moss Primary Care Physician Encounter VC Date(s): 11/17/15 - 11/17/15 [facility] [address] [place] [address]- [phone] Discharge Diagnosis: Shoulder pain Discharge Diagnosis: Biceps tendonitis on left Discharge Diagnosis: Subacromial bursitis Discharge Disposition: 01-Home or Self Care Attending Physician: Hussein Mclain Admitting Physician: Hussein Mclain Referring Physician: Marcela Moss DO Vital Signs Most recent to oldest [Reference Range]: 1 Blood Pressure [90-140/60-90 mmHg] 124/78 mmHg (11/17/15 10:22 AM) Problem List Condition Effective Dates Status [...] DAY, # 90 tabs, 2 Refill(s), eRx: [facility], TAKE ONE TABLET BY MOUTH EVERY DAY Start Date: 11/25/14 Status: Orderedlevothyroxine 88 mcg (0.088 mg) oral tablet See Instructions, TAKE ONE TABLET BY MOUTH ONCE DAILY, # 90 tabs, 1 Refill(s), eRx: [facility] 2428, TAKE ONE TABLET BY MOUTH ONCE DAILY Start Date: 08/25/15 Status: Orderedlisinopril 10 mg oral tablet 10 mg 1 tabs, Oral, Daily, # 90 tabs, 1 Refill(s), Pharmacy: [facility] 2428, 1 tabs Oral Daily Start Date: 08/25/15 Status: Orderedmeloxicam 15 mg oral tablet 15 mg 1 tabs, Oral, Daily, # 15 tabs, 0 Refill(s), Pharmacy: [facility] 2428, 1 tabs Oral Daily Start Date: 10/26/15 Status: OrderedmetFORMIN 500 mg oral tablet See Instructions, 1 tabs Oral Daily,Instr:PT. NEEDS AN APPT. /, # 90 tabs, eRx: [facility] 2428, 1 tabs Oral Daily,Instr:PT. NEEDS AN APPT. / Start Date: 09/14/15 Status: OrderedMisc Medication vitamin B one daily, 0 Refill(s) Start Date: 05/12/14 Status: Orderedmultivitamin Daily, 0 Refill(s) Start Date: 05/12/14 Status: OrderedOsteo Bi-Flex Oral, Daily, 0 Refill(s) Start Date: 05/12/14 Status: OrderedPANTOPRAZOLE 40MG TAB See Instructions, TAKE ONE TABLET BY MOUTH EVERY DAY, # 90 tabs, 2 Refill(s), eRx: [facility] [id number], TAKE ONE TABLET BY MOUTH EVERY DAY Start Date: 07/29/14 Status: OrderedProtonix 40 mg oral delayed release tablet 40 mg 1 tabs, Oral, Daily, # 90 tabs, 3 Refill(s), Pharmacy: [facility], 1 tabs Oral Daily Start Date: 06/26/15 Status: OrderedVoltaren 1% topical gel 1 neha, Topical, QID, as needed for pain, # 100 g, 0 Refill(s), Pharmacy: [facility] Start Date: 11/17/15 Status: [...] Office Visit Note Author: Hussein Mclain Date: 11/17/15 Assessment/Plan Biceps tendonitis on left Ordered: Request for Therapies Shoulder pain Ordered: Request for Therapies Subacromial bursitis Ordered: Request for Therapies Dr. Cali and I discussed with the patient thatchamp has degenerative disc disc bulgingL5-S1into the base the right neuroforamen moderate narrowing of the right neuroforamen L4 5 severe disc space n arrowing disc bulging narrowing of the right foramen. Osteoarthritic changes in her knees as well as her right hip. She seems have improved following her right lumbar transforaminal epiduraland he r bursitis injection. She has some residual symptoms but says she is managing with this. She has not desire any further interventions for this. She has a complaint of pain in her left shoulder with biceps region Dr. Cali fills this is a combination of symptoms fromleft subacromial bursitis and biceps tendinitis andpossible some impingement . Dr. Cali did recommend a course of physical therapy including steroid phonophoresis. She was written a prescription for this. She was also provided a refill of her Voltarengel today. Sheal so was asked to get an x-ray of her left shoulder. She'll follow-up here in 6 weeks time, sooner if needed. If her symptoms persist he might need to consider injection. She'll follow-up sooner if needed. She voiced understanding and agrees to the above plans. Physical exam findings history present illness recommendations are performed with an agreement Dr. Angela findings.
--- OUTSIDE RECORDS SUMMARY | 2017-08-11 15:08 | External Medical Summary | Referral Summary ---
:1945 Author Organization [facility] [address] [place] [address] Care Team Providers Name Role Phone Marcela Moss Primary Care Physician Encounter VC Date(s): 02/29/16 - 02/29/16 [facility] [address] [place] [address] [place] Discharge Diagnosis: Diabetes Discharge Diagnosis: Chronic kidney disease Discharge Diagnosis: Depression Discharge Diagnosis: Hypothyroidism (disorder) Discharge Diagnosis: Insomnia Discharge Diagnosis: Anxiety Discharge Diagnosis: High cholesterol Discharge Disposition: 01-Home or Self Care Attending Physician: Marcela Moss DO Admitting Physician: Marcela Moss DO Vital Signs Most recent to oldest [Reference Range]: 1 Peripheral Pulse Rate [60-100 bpm] 91 bpm (02/29/16 12:51 PM) Blood Pressure [90-140/60-90 mmHg] 120/80 mmHg (02/29/16 12:51 PM) SpO2 96 % (02/29/16 12:51 PM) Problem List Condition Effective Dates Status Health [...] # 90 tabs, 2 Refill(s), eRx: [facility] [id number], TAKE ONE TABLET BY MOUTH EVERY DAY Start Date: 11/25/14 Status: Orderedlevothyroxine 88 mcg (0.088 mg) oral tablet See Instructions, TAKE ONE TABLET BY MOUTH ONCE DAILY, # 90 tabs, 1 Refill(s), eRx: [facility], TAKE ONE TABLET BY MOUTH ONCE DAILY Start Date: 08/25/15 Status: Orderedlisinopril 10 mg oral tablet 10 mg 1 tabs, Oral, Daily, # 90 tabs, 1 Refill(s), Pharmacy: [facility], 1 tabs Oral Daily Start Date: 02/29/16 Status: Orderedmeloxicam 15 mg oral tablet 15 mg 1 tabs, Oral, Daily, # 15 tabs, 0 Refill(s), Pharmacy: [facility], 1 tabs Oral Daily Start Date: 10/26/15 Status: OrderedmetFORMIN 500 mg oral tablet See Instructions, 1 tabs Oral Daily,Instr:, # 90 tabs, 1 Refill(s), Pharmacy: [facility], 1 tabs Oral Daily,Instr: Start Date: 02/29/16 Status: OrderedMisc Medication vitamin B one daily, 0 Refill(s) Start Date: 05/12/14 Status: Orderedmultivitamin Daily, 0 Refill(s) Start Date: 05/12/14 Status: OrderedOsteo Bi-Flex Oral, Daily, 0 Refill(s) Start Date: 05/12/14 Status: OrderedPANTOPRAZOLE 40MG TAB See Instructions, TAKE ONE TABLET BY MOUTH EVERY DAY, # 90 tabs, 2 Refill(s), eRx: [facility] [id number], TAKE ONE TABLET BY MOUTH EVERY DAY Start Date: 07/29/14 Status: OrderedProtonix 40 mg oral delayed release tablet 40 mg 1 tabs, Oral, Daily, # 90 tabs, 3 Refill(s), Pharmacy: [facility], 1 tabs Oral Daily Start Date: 06/26/15 Status: OrderedVoltaren 1% topical gel 1 neha, Topical, QID, as needed for pain, # 100 g, 0 Refill(s), Pharmacy: [facility]28 Start Date: 11/17/15 Status: [...] Visit Note Author: Marcela Moss DO Date: 02/29/16 Assessment/Plan Anxiety Continue SSRI and very occasional Xanax, return to clinic 6 months. Ordered: Office Visit Level 4 Est 89478 Chronic kidney disease We will get labstomorrow when she is fasting. Continue current medications for this time. Ordered: Office Visit Level 4 Est 29094 Depression Continue SSRI. Diabetes A1c, further recommendations after results. Return to clinic 6 months. Ordered: Hemoglobin A1c High cholesterol She is unable to tolerate medications,we will check her cholesterol with fasting labs tomorrowwith further recommendations after results. Hypothyroidism (disorder) TSH with labs tomorrow. Return to clinic 6 months. Ordered: Office Visit Level 4 Est 56029 TSH with Reflex Free T4 Insomnia Continue very sparing use of Xanax. Return to clinic 6 months. Ordered: Office Visit Level 4 Est 44408 Orders: lisinopril, 10 mg 1 tabs, Oral, Daily, # 90 tabs, 1 Refill(s), Pharmacy: [facility], 1 tabs Oral Daily metFORMIN, See Instructions, 1 tabs Oral Daily,Instr:, # 90 tabs, 1 Refill(s) , Pharmacy: [facility], 1 tabs Oral Daily,Instr: Comprehensive Metabolic Panel Lipid Panel
--- OUTSIDE RECORDS SUMMARY | 2017-08-11 15:08 | External Medical Summary | Referral Summary ---
:1945 Author [facility] Address [address] [place] [address] [place] [address] Care Team Providers Name Role Phone Marcela Moss Primary Care Physician Encounter VC Date(s): 11/30/16 - 11/30/16 [facility] [address] [place] [address] [place] Discharge Diagnosis: Fatigue Discharge Disposition: 01-Home or Self Care Attending Physician: Marcela Moss DO Admitting Physician: Marcela Moss DO Vital Signs Most recent to oldest [Reference Range]: 1 Temperature Tympanic [36.6-38.1 degC] 36.7 degC (11/30/16 1:13 PM) Peripheral Pulse Rate [60-100 bpm] 94 bpm (11/30/16 1:13 PM) Blood Pressure [90-140/60-90 mmHg] 120/82 mmHg (11/30/16 1:13 PM) SpO2 98 % (11/30/16 1:13 PM) Problem List Condition Effective Dates Status [...] for anxiety, mara riley, # 20 tabs, 2 Refill(s) Start Date: 09/03/16 Status: Orderedbiotin Oral, Daily, 0 Refill(s) Start Date: 11/30/16 Status: OrderedCitalopram 40 mg oral tablet See Instructions, TAKE ONE-HALF TABLET BY MOUTH ONCE DAILY, # 30 tabs, 1 Refill( s), Pharmacy: [facility] 242, TAKE ONE-HALF TABLET BY MOUTH ONCE DAILY Start Date: 11/30/16 Status: OrderedGlucosamine Chondroitin Advanced 0 Refill(s) Start Date: 11/30/16 Status: Orderedlevothyroxine 88 mcg (0.088 mg) oral tablet See Instructions, TAKE ONE TABLET BY MOUTH ONCE DAILY, # 90 tabs, 1 Refill(s), eRx: [facility], TAKE ONE TABLET BY MOUTH ONCE DAILY Start Date: 09/03/16 Status: OrderedMetamucil Oral, 0 Refill(s) Start Date: 11/30/16 Status: OrderedmetFORMIN 500 mg oral tablet See Instructions, TAKE ONE TABLET BY MOUTH ONCE DAILY, # 90 tabs, 1 Refill(s), eRx: [facility], TAKE ONE TABLET BY MOUTH ONCE DAILY Start Date: 09/03/16 Status: Orderedmultivitamin Daily, 0 Refill(s) Start Date: 11/30/16 Status: OrderedOcuvite tabs, Oral, Daily, 0 Refill(s) Start Date: 11/30/16 Status: Orderedpantoprazole 40 mg oral delayed release tablet See Instructions, TAKE ONE TABLET BY MOUTH ONCE DAILY, # 90 tabs, 0 Refill(s), Pharmacy: [facility], TAKE ONE TABLET BY MOUTH ONCE DAILY Start Date: 10/18/16 Status: OrderedVoltaren 1% topical gel 1 neha, Topical, QID, as needed for pain, # 100 g, 0 Refill(s), Pharmacy: [facility] Start Date: 11/17/15 Status: Ordered Results No data available for this section Immunizations Given and Recorded Vaccine Date Status Refusal Reason influenza virus vaccine, inactivated 10/03/16 Recorded influenza virus vaccine, inactivated 07/01/14 Recorded pneumococcal 13-valent conjugate vaccine 08/03/15 Given pneumococcal 23-polyvalent vaccine 10/08/07 Recorded tetanus-diphth toxoids (Td) adult/adol 08/03/15 Given Procedures Procedure Date Related Diagnosis Body Site Mammogram - screening1 09/06/16 Right L4-5/L5-S1 Transforaminal 05/12/14 Laparoscopic cholecystectomy2 02/11/13 Right L5-S1 Transforminal injection 11/12/12 Colonoscopy Cystoscopy Hydrodistention and SLT laser vaporation and external urethral carunclectomy Tubal ligation 1done at [facility] [place] [facility]dkprk5Bgg[facility], benign, chronic cholecystitis Social History Social History Type Response Smoking Status Never smoker Assessment and Plan Extracted from: Title: Ambulatory Patient Education Author: Marcela Moss DO Date: 11/30/16 Behavioral Health Fatigue Fatigue is feeling tired all of the time, a lack of energy, or a lack of motivation. Occasional or mild fatigue is often a normal response to activity or life in general. However, long-lasting (chronic) or extreme fatigue may indicate an underlying medical condition. HOME CARE INSTRUCTIONS Watch your fatigue for any changes. The following actions may help to lessen any discomfort you are feeling: Talk to your health care provider about how much sleep you need each night. Try to get the required amount every night. Take medicines only as directed by your health care provider. Eat a healthy and nutritious diet. Ask your health care provider if you need help changing your diet. Drink enough fluid to keep your urine clear or pale yellow. Practice ways of relaxing, such as yoga, meditation, massage therapy, or acupuncture. Exercise regularly. Change situations that cause you stress. Try to keep your work and personal routine reasonable. Do not abuse illegal drugs. Limit alcohol intake to no more than 1 drink per day for non women and 2 drinks per day for men. One drink equals 12 ounces of beer, 5 ounces of wine, or 1 ounces of hard liquor. Take a multivitamin, if directed by your health care provider. SEEK MEDICAL CARE IF: Your fatigue does not get better. You have a fever. You have unintentional weight loss or gain. You have headaches. You have difficulty: Falling asleep. Sleeping throughout the night. You feel angry, guilty, anxious, or sad. You are unable to have a bowel movement (constipation). You skin is dry. Your legs or another part of your body is swollen. SEEK IMMEDIATE MEDICAL CARE IF: You feel confused. Your vision is blurry. You feel faint or pass out. You have a severe headache. You have severe abdominal, pelvic, or back pain. You have chest pain, shortness of breath, or an irregular or fast heartbeat. You are unable to urinate or you urinate less than normal. You develop abnormal bleeding, such as bleeding from the rectum, vagina , nose, lungs, or nipples. You vomit blood. You have thoughts about harming yourself or committing suicide. You are worried that you might harm someone else. This information is not intended to replace advice given to you by your health care provider. Make sure you discuss any questions you have with your health care provider. Document Released: 08/26/2008 Document Revised: 11/20/2015 Document Reviewed: 03/03/2015 [employer] Patient Education 2016 [employer] No follow up information was provided. Extracted from: Title: Office Visit Note Author: Marcela Moss DO Date: 11/30/16 Assessment/Plan Fatigue EKG was normal,patient declined any lab work at this time,I've advised her that she can start slow and exercise cautionwith increasing her physical activity. If this is not effective she sh ould return to clinic. She should also return to clinic for her regularly scheduled visit in February. Ordered: Office Visit Level 3 Est 05603
--- OUTSIDE RECORDS SUMMARY | 2017-08-11 15:08 | External Medical Summary | Referral Summary ---
:1945 Author Organization [facility] Address [address] [place] [address] [place]IAN[place] Marquez [id number] Care Team Providers Name Role Phone Marcela Moss Primary Care Physician Encounter VC Date(s): 07/19/16 - 07/19/16 [facility] [place] [phone] [place] Discharge Diagnosis: Perforated viscus Discharge Diagnosis: Fatigue Discharge Disposition: 01-Home or Self Care Attending Physician: Marcela Moss DO Admitting Physician: Marcela Moss DO Vital Signs Most recent to oldest [Reference Range]: 1 Temperature Tympanic [36.6-38.1 degC] 36.9 degC (07/19/16 8:47 AM) Peripheral Pulse Rate [60-100 bpm] 88 bpm (07/19/16 8:47 AM) Respiratory Rate [14-20 br/min] 17 br/min (07/19/16 8:47 AM) Blood Pressure [90-140/60-90 mmHg] 110/70 mmHg (07/19/16 8:47 AM) SpO2 98 % (07/19/16 8:47 AM) Problem List Condition Effective Dates Status [...] DAILY, # 90 tabs, 1 Refill(s), Pharmacy: [facility] [id number], TAKE ONE TABLET BY MOUTH ONCE DAILY Start Date: 03/18/16 Status: OrderedmetFORMIN 500 mg oral tablet See Instructions, 1 tabs Oral Daily,Instr:, # 90 tabs, 1 Refill(s), Pharmacy: [facility] [id number], 1 tabs Oral Daily,Instr: Start Date: 02/29/16 Status: Orderedpantoprazole 40 mg oral delayed release tablet See Instructions, TAKE ONE TABLET BY MOUTH ONCE DAILY, # 90 tabs, eRx: [facility] [id number], TAKE ONE TABLET BY MOUTH ONCE DAILY Start Date: 06/29/16 Status: OrderedVoltaren 1% topical gel 1 neha, Topical, QID, as needed for pain, # 100 g, 0 Refill(s), Pharmacy: [facility] [id number] Start Date: 11/17/15 Status: Ordered Results No [...] and Plan Extracted from: Title: Office Visit Note- hosp f/u Author: Marcela Moss DO Date: 07/19/16 Assessment/Plan Fatigue Discussed with patient that the reason she was on the lisinopril was secondary to her diabetes and this offering some renal protection. It is okay for her to discontinue this medication if she was not able to tolerate. We will watch her fatigue level and see if this does continue to improveand if not we might consider starting her back on the lisinopril secondary to it not helping be ing off of it. We also discussed thehot flash type episodes and she will watch for concerning sign and symptoms such as shortof breath, chest pain, etc. If these do not continue to improve she should follow-up for reevaluation. Ordered: Office Visit Level 4 Est 89277 Perforated viscus Handled by Dr. Darden, this is now resolved and she is released from surgery with some continued restrictions. Ordered: Office Visit Level 4 Est [id number] Extracted from: Title: Ambulatory Patient Education Author: Marcela Moss DO Date: 07/19/16 Family Medicine Fatigue Fatigue is feeling tired all of [...] 08/26/2008 Document Revised: 11/20/2015 Document Reviewed: 03/03/2015 [employer] Patient Information 2016 [employer]. No follow up information was provided.
[2017-08-11] MEDS ORDERED: METOPROLOL 5mg/5ml INJECTION IVP ONE ×2 (15:16)
[2017-08-11] MEDS ORDERED: SALINE FLUSH 10ml SYRINGE IVF PRN (15:16)
[2017-08-11] MEDS ORDERED: NS 1,000 ML IV ONE ×2 (15:16→15:56)
--- NOTE | 2017-08-11 15:18 | Emergency Department Report ---
Cardiac General HPI - General Chief Complaint: Arrhythmia/Palpitations Stated Complaint: afib Time Seen by Provider: 08/11/17 15:01 Source: patient Mode of arrival: ambulatory Limitations: no limitations - History of Present Illness HPI narrative: 72yo woman presented to the ER for new-onset a-fib with RVR. Pt was evaluated by home health earlier today and referred for evaluation of new 'arrhythmia'. Home health called EMS for transport; on initial eval, pt was in a-fib, with a rate of 80bpm. When pt was loaded, her rate jumped into the 190s. Pt was given 15mg diltiazem en route, in 5mg increments with drop in pressure with each bolus. Pt was recently released from [facility] following lobectomy for lung CA. Pt had her LLL removed with a 'tennis ball' sized tumor; all lymph nodes were negative for spread. Today, pt is c/o tugging or pulling along her left flank. Pt was on metoprolol while admitted. Med was stopped on d/c. Occurred At: home Onset (ago): minute(s) Duration: constant Context: occurred during rest Activites at Onset: none Treatments prior to arrival: vagal maneuvers, calcium channel lilian - Related Data Home Medications Medication Instructions Recorded Confirmed Levothyroxine Sodium 88 mcg PO DAILY #0 02/08/13 08/11/17 Pantoprazole Sodium 40 mg PO HS #0 02/08/13 08/11/17 Metformin HCl 500 mg PO DAILY #0 06/18/16 08/11/17 Citalopram [Celexa] 20 mg PO DAILY 04/16/17 08/11/17 Vit C/Vit E/Lutein/Min/[place]-3 1 cap PO DAILY 04/16/17 08/11/17 [Ocuvite Softgel] Acetaminophen [Acetaminophen ER] 650 mg PO Q4H PRN 08/11/17 08/11/17 Diclofenac [Voltaren] 1 applic TOP QID PRN 08/11/17 08/11/17 Gluc Lyn/MSM/Magnesium/Vit C 1 cap PO BID 08/11/17 08/11/17 [Glucosamine Complex-MSM Cap] Hydrocodone/APAP 5/325 [[place] 1 - 2 tab PO Q4-6HR PRN 08/11/17 08/11/17 5/325] Psyllium [Metamucil] 1 packet PO HS PRN 08/11/17 08/11/17 Allergies Allergy/AdvReac Type Severity Reaction Status Date / Time No Known Drug Allergies Allergy Unknown Verified 08/11/17 15:50 Review of Systems All systems: reviewed and negative except as stated Cardiovascular: Reports: as per HPI, palpitations Respiratory: Reports: as per HPI Gastrointestinal: Reports: as per HPI [facility] Medical History (Last Reviewed 05/24/17 @ 10:25 by Kyle Anderson MD) Arthritis (Acute Medical) Diabetes mellitus, type II (Acute Medical) High blood pressure (Acute Medical) High cholesterol (Acute Medical) Medical History Updates: Lung CA Surgical History: Cholecystectomy-2013. LLL Lobectomy Jul 2017 Family History: Family History (Last Reviewed 05/24/17 @ 10:25 by Kyle Anderson MD) Mother Breast cancer Father Stroke Deep vein thrombosis Son Melanoma Unknown Breast cancer Lung cancer - Social History Smoking status: Former smoker Physical Exam - Limitations Limitations: no limitations - General General appearance: alert, in no apparent distress, obese - Normal Exams: Head:: Normocephalic without trauma Eyes:: Pupils are PERRLA w/ EOMI, No scleral icterus, irritation, or foreign bodies noted ENMT:: No facial trauma, nasal exudates, pharyngeal erythema, or exudates are noted Neck:: Full range of motion, without adenopathy Chest/Respirations:: Clear all kramer, with good airflow, and symmetry bilaterally Abdomen:: Bowel sounds positive, soft, non-tender, non-distended, no hepatosplenomegaly, masses or bruits noted Lymphatic:: No lymphadenopathy Musculoskeletal:: No tenderness, or deformity noted Integumentary:: No rashes, hives Neurological:: Patient is alert, and oriented Psychiatric:: Patient exhibits, appropriate attention - Chest Chest inspection: Present: normal inspection, symmetric chest wall rise, tenderness (Over incision site). Absent: rash - Cardiovascular Cardiovascular exam: Present: tachycardia, irregular rhythm, normal heart sounds , +S1, +S2. Absent: systolic murmur, diastolic murmur, +S3, +S4 - Skin Skin exam: Present: other (Diffuse ecchymosis - pt states sx started during heparin while inpt.) Course Course Narrative: Pt given metoprolol boluses of 5mg metoprolol x2 without significant change in her rate. Diltiazem drip then started and titrated to a rate of 25mL/hr over the space of 50 minutes. No significant change in pts rate; BP maintained with IVF. Pt began to c/o 'funny feeling'; pt had a cardiac pause of appx 5 secs and became diaphoretic. Diltiazem drip stopped. Pt was reassessed; cont to be stable. Appx 20min after stopping Dilt, pt spontaneous converted (while discussing pts care with bench assembler operator). - Consultations Consultation #1: Dr. Hernandez: Sounds like a post-op a-fib; will need to be admitted to CCU under hospitalist - available for phone consult overnight. - Will need r/o PE - May give Diltiazem boluses 0.25-0.5mg/Kg as needed; wait 20-30 min between boluses; ensure SBP >=100mmHg. - May run Diltiazem drip if necessary to keep rate controlled, but ~10mL/hr - Pt will need TSH and echo - May consider amiodarone, but prefer use of diltiazem first - If pt develops refractory hypotension, consider use of levophed or phenylephrine Time: 16:14 Consultation #2: Hospitalist: Will admit obs to CCU. Time: 17:12 Vital Signs Temperature 98.5 F 08/11/17 14:59 Respiratory Rate 24 08/11/17 14:59 Temperature 98.5 F 08/11/17 14:59 Pulse Rate 138 H 08/11/17 16:20 Respiratory Rate 26 H 08/11/17 16:20 Blood Pressure 87/45 08/11/17 16:20 Pulse Oximetry 95 08/11/17 16:06 Cardiac General - Differential Diagnosis Differential diagnosis: Likely: palpitations, sinus tachycardia, artial fibrillation, artial flutter, supraventricular tachycardia - Medical Records Attestation: I reviewed the patient's medical records. - Lab Data Attestation: I reviewed the patient's lab results. Result diagrams: 08/11/17 15:32 08/11/17 15:32 Lab Results 08/11/17 08/11/17 08/11/17 Range/Units 15:32 15:32 16:06 WBC 12.7 H (4.5-11.0) T/MM3 RBC 5.37 H (4.00-5.20) M/MM3 Hgb 11.5 L (12-16) GM/DL Hct 38.0 (36-46) % MCV 70.8 L (80-100) UM3 MCH 21.4 L (26-34) UUG MCHC 30.3 L (31-37) GM/DL RDW Std Deviation 48.9 (36.9-50.2) FL Plt Count 683 H (130-400) T/MM3 MPV 10.1 (9.4-12.4) UM3 Immature Gran % (Auto) 0.7 H (0.0-0.5) % Neut % (Auto) 63.2 (33-66) % Lymph % (Auto) 24.7 (23-45) % [place] % (Auto) 9.3 H (0-9.0) % Eos % (Auto) 1.7 (0-4) % Baso % (Auto) 0.4 (0-2) % Neut # (Auto) 8.0 H (1.8-7.7) T/MM3 Lymph # (Auto) 3.1 (1-4.8) T/MM3 [place] # (Auto) 1.2 H (0-0.8) T/MM3 Eos # (Auto) 0.2 (0-0.5) T/MM3 Baso # (Auto) 0.1 (0-0.2) T/MM3 Abs Immat Gran (auto) 0.09 H (0.00-0.03) T/MM3 Turbidity < 20 (0-20) Sodium 144 (134-144) MEQ/L Potassium 4.1 (3.6-5) MEQ/L Chloride 106 (98-107) MEQ/L Carbon Dioxide 27 (22-30) MEQ/L Anion Gap 11 (5-15) MEQ/L BUN 12.0 (7-17) MG/DL Creatinine 0.9 (0.7-1.2) MG/DL GFR Calculation 62 BUN/Creatinine Ratio 13 (6-26) RATIO Glucose 145 H (65-110) MG/DL Calculated Osmolality 280 (261-280) MOSM/KG Calcium 9.8 (8.4-10.2) MG/DL Total Bilirubin 0.40 (0.20-1.30) MG/DL Icterus Index < 2 (0-7) AST 32 (14-36) U/L ALT 48 (9-52) U/L Alkaline Phosphatase 82 (38-126) U/L Troponin I 0.056 (0-0.12) ng/ml Total Protein 7.5 (6.3-8.2) G/DL Albumin 3.9 (3.5-5.0) G/DL Globulin 3.6 (2.4-3.6) G/DL Albumin/Globulin Ratio 1.1 (1.1-2.2) RATIO Plasma Lactate (0.6-2.2) MMOL/L Procalcitonin NG/ML TSH (0.47-4.68) MIU/L Specimen Hemolysis < 15 (0-25) Ur Collection Type Urine, catheter Urine Color Yellow (YELLOW) Urine Clarity Clear Urine pH 7.0 (5.0-8.0) Ur Specific [place] <=1.005 L (1.015-1.025) Urine Protein Negative (NEGATIVE) Urine Glucose (UA) Negative (NEGATIVE) Urine Ketones Negative (NEGATIVE) Urine Occult Blood Negative (NEGATIVE) Urine Nitrate Negative (NEGATIVE) Urine Bilirubin Negative (NEGATIVE) Urine Urobilinogen 0.2 (NORMAL) EU/DL Ur Leukocyte Esterase Negative (NEGATIVE) Urinalysis Comment Microscopic not ind. 08/11/17 08/11/17 Range/Units 16:14 16:14 WBC (4.5-11.0) T/MM3 RBC (4.00-5.20) M/MM3 Hgb (12-16) GM/DL Hct (36-46) % MCV (80-100) UM3 MCH (26-34) UUG MCHC (31-37) GM/DL RDW Std Deviation (36.9-50.2) FL Plt Count (130-400) T/MM3 MPV (9.4-12.4) UM3 Immature Gran % (Auto) (0.0-0.5) % Neut % (Auto) (33-66) % Lymph % (Auto) (23-45) % [place] % (Auto) (0-9.0) % Eos % (Auto) (0-4) % Baso % (Auto) (0-2) % Neut # (Auto) (1.8-7.7) T/MM3 Lymph # (Auto) (1-4.8) T/MM3 [place] # (Auto) (0-0.8) T/MM3 Eos # (Auto) (0-0.5) T/MM3 Baso # (Auto) (0-0.2) T/MM3 Abs Immat Gran (auto) (0.00-0.03) T/MM3 Turbidity (0-20) Sodium (134-144) MEQ/L Potassium (3.6-5) MEQ/L Chloride (98-107) MEQ/L Carbon Dioxide (22-30) MEQ/L Anion Gap (5-15) MEQ/L BUN (7-17) MG/DL Creatinine (0.7-1.2) MG/DL GFR Calculation BUN/Creatinine Ratio (6-26) RATIO Glucose (65-110) MG/DL Calculated Osmolality (261-280) MOSM/KG Calcium (8.4-10.2) MG/DL Total Bilirubin (0.20-1.30) MG/DL Icterus Index (0-7) AST (14-36) U/L ALT (9-52) U/L Alkaline Phosphatase (38-126) U/L Troponin I (0-0.12) ng/ml Total Protein (6.3-8.2) G/DL Albumin (3.5-5.0) G/DL Globulin (2.4-3.6) G/DL Albumin/Globulin Ratio (1.1-2.2) RATIO Plasma Lactate 2.8 H (0.6-2.2) MMOL/L Procalcitonin 0.06 NG/ML TSH 1.64 (0.47-4.68) MIU/L Specimen Hemolysis (0-25) Ur Collection Type Urine Color (YELLOW) Urine Clarity Urine pH (5.0-8.0) Ur Specific [place] (1.015-1.025) Urine Protein (NEGATIVE) Urine Glucose (UA) (NEGATIVE) Urine Ketones (NEGATIVE) Urine Occult Blood (NEGATIVE) Urine Nitrate (NEGATIVE) Urine Bilirubin (NEGATIVE) Urine Urobilinogen (NORMAL) EU/DL Ur Leukocyte Esterase (NEGATIVE) Urinalysis Comment - Radiology Data Attestation: I reviewed the patient's radiology results. CT-PA: IMPRESSION: 1. No evidence of a pulmonary embolism. 2. Postoperative changes in the left hemithorax. Patchy groundglass opacities in the left lung are nonspecific and could represent pneumonia, an inflammatory process or edema. 3. Extensive subcutaneous emphysema in the soft tissues of the neck and left chest wall. This may be related to recent surgery but seems more extensive than would be typically seen 1 week postoperatively. If there has been no interval intervention, this may be related to spontaneous pneumomediastinum dissecting into the neck and chest wall. Correlate clinically. 4. Left subpleural gas densities could related to recent surgery. No measurable left pneumothorax. Remainder of non-emergent findings as described above. CXR: Findings: Extensive subcutaneous emphysema in the neck and left chest. This partially obscures the left lung field. I do not identify any significant left-sided pneumothorax. The right lung appears clear. Small left pleural effusion. No right-sided effusion. Heart size is stable. Slight leftward mediastinal shift probably due to volume loss from the patient's reported recent lobectomy. Pulmonary vascularity is grossly normal but somewhat obscured on the left side. Impression: Extensive subcutaneous emphysema reportedly from a recent lobectomy procedure. No visible pneumothorax or focal pneumonia. KUB: Non-obstructing bowel gas pattern. No free air or fluid. Large amount of gas in colon. Surgical clips in RUQ. No acute bony pathology. - EKG Data EKG #1 EKG attestation: Yes: I reviewed and interpreted this EKG. EKG shows normal: axis, intervals, QRS complexes, ST-T waves Rate: tachycardia Rhythm: A.Fib EKG #2 EKG attestation: Yes: I reviewed and interpreted this EKG. EKG shows normal: sinus rhythm, axis, intervals, QRS complexes, ST-T waves Rate: normal Interpretation: normal EKG Critical Care Time Critical Care Time: Yes Total Critical Care Time: 120 Attestation: 120 min of critical care time assigned to this case due to its urgency, complexity of decision making, need for continued patient re-evaluation, or resources devoted to stabilizing the patient. Disposition Clinical Impression: Atrial fibrillation with RVR Disposition: 02 To [facility] Condition: Improved Time of Disposition: 17:24 - Seen By: physician
[2017-08-11] MEDS ORDERED: DiltiaZEM Drip 125 MG in NS 100 ML IV SCH (15:30)
[2017-08-11] MEDS ORDERED: IOHEXOL 350mg/ml 75ml INJECTION ONE (16:39)
[2017-08-11] MEDS ORDERED: SALINE FLUSH 10ml SYRINGE ONE (16:40)
[2017-08-11] MEDS ORDERED: NS 100 ML ONE (16:40)
--- NOTE | 2017-08-11 16:49 | XRay Report ---
Indication: New-onset A-fib; recent lobectomy PROCEDURE: XR chest 1V: Encounter: Initial Comparison: June 18, 2016 Findings: Extensive subcutaneous emphysema in the neck and left chest. This partially obscures the left lung field. I do not identify any significant left-sided pneumothorax. The right lung appears clear. Small left pleural effusion. No right-sided effusion. Heart size is stable. Slight leftward mediastinal shift probably due to volume loss from the patient's reported recent lobectomy. Pulmonary vascularity is grossly normal but somewhat obscured on the left side. Impression: Extensive subcutaneous emphysema reportedly from a recent lobectomy procedure. No visible pneumothorax or focal pneumonia. .
[2017-08-11] MEDS ORDERED: ONDANSETRON 4 MG/2 ML INJECTION IVP PRN (18:13)
[2017-08-11] MEDS ORDERED: BISACODYL 10 MG SUPPOSITORY RECTALLY PRN (18:23)
[2017-08-11] MEDS ORDERED: DiltiaZEM 25 MG/5 ML INJECTION IVP PRN ×2 (18:27)
--- NOTE | 2017-08-11 20:03 | History & Physical Report ---
History of Present Illness Date: 08/11/17 Chief complaint: Palpitations, weakness HPI: 72 y/o female presents to [facility] ED via EMS secondary to palpitations and weakness. Was found to have lung cancer in June of this year. Underwent lobectomy for tumor removal on 08/04 at [facility]. She was discharged yesterday and returned home at 1600. Did well last night-minimal pain. This morning she had a bowel movement but when she stool up from the stool she thought she would pass out. Went to lay down. Home Health came to check on her. Was doing well until got up again to go to the bathroom and again felt like she would pass our. Nurse check pulse and erratic - EMS activated. Initial HR 223. EMS provided treatments, but could not get HR down. Taken to ED where was in afib with RVR. HR did decrease (and converted to NSR) in ED. BP dropped with diltiazem. Dr Hernandez (manager compensation cardilogy) contacted and recommended. Patient placed in OBS for evaluation. Review of Systems All systems PM: 10-point ROS was reviewed, no additional remarkable complaints except - Constitutional Constitutional: Present: fatigue - Cardiovascular Cardiovascular: Absent: chest pain, palpitations, edema - Respiratory Respiratory: Present: dyspnea on exertion (Recent lobectomy ). Absent: cough, pain on inspiration, chest congestion, excessive phlegm production - Gastrointestinal Gastrointestinal: Present: change in bowel habits (Slow secondary to recent narcotic use from sx), constipation. Absent: abdominal pain, diarrhea, dyspepsia, dysphagia Gastrointestinal Comments: Chest wall has felt numb since Sx - Musculoskeletal Musculoskeletal: Absent: muscle weakness [facility] Patient Stated Medical History Other Musculoskeletal Yes: mild stenosis, general arthritis Anesthesia Reactions Yes: drop in blood pressure Clinic Medical History (Last Reviewed 05/24/17 @ 10:25 by Kyle Anderson MD) Arthritis (Acute Medical) Diabetes mellitus, type II (Acute Medical) High blood pressure (Acute Medical) High cholesterol (Acute Medical) Medical History Updates: Lung CA Surgical History: Cholecystectomy-2013. LLL Lobectomy Jul 2017 Family History: Family History (Last Reviewed 05/24/17 @ 10:25 by Kyle Anderson MD) Mother Breast cancer Father Stroke Deep vein thrombosis Son Melanoma Unknown Breast cancer Lung cancer - Social History Smoking status: Former smoker Housing: house Household members: spouse (Of 32 years ) Current occupational status: retired Social history: Dr Moss PCP Medications Home Medications Medication Instructions Recorded Confirmed Type Levothyroxine Sodium 88 mcg PO DAILY #0 02/08/13 08/11/17 History Pantoprazole Sodium 40 mg PO HS #0 02/08/13 08/11/17 History Metformin HCl 500 mg PO DAILY #0 06/18/16 08/11/17 History Citalopram [Celexa] 20 mg PO DAILY 04/16/17 08/11/17 History Vit C/Vit E/Lutein/Min/[place]-3 1 cap PO DAILY 04/16/17 08/11/17 History [Ocuvite Softgel] Acetaminophen [Acetaminophen ER] 650 mg PO Q4H PRN 08/11/17 08/11/17 History Diclofenac [Voltaren] 1 applic TOP QID PRN 08/11/17 08/11/17 History Gluc Lyn/MSM/Magnesium/Vit C 1 cap PO BID 08/11/17 08/11/17 History [Glucosamine Complex-MSM Cap] Hydrocodone/APAP 5/325 [[place] 1 - 2 tab PO Q4-6HR PRN 08/11/17 08/11/17 History 5/325] Psyllium [Metamucil] 1 packet PO HS PRN 08/11/17 08/11/17 History Allergies Allergy/AdvReac Type Severity Reaction Status Date / Time No Known Drug Allergies Allergy Unknown Verified 08/11/17 15:50 Exam Vital Signs: Temperature 98.5 F 08/11/17 14:59 Pulse Rate 79 08/11/17 17:51 Respiratory Rate 51 H 08/11/17 17:51 Blood Pressure 146/62 H 08/11/17 17:51 Pulse Oximetry 85 L 08/11/17 17:51 Telemetry Rhythm: Sinus Rhythm - Constitutional Present: no acute distress, well nourished, well developed, obese, cooperative. Absent: combative, agitated, somnolent, obtunded - Routine HEENT Exam Head: Present: normocephalic, atraumatic Eye: Present: EOMI, PERRL. Absent: scleral injection ENT: Present: mucous membranes moist - Routine Neck Exam Present: supple, full ROM, trachea midline - Routine Respiratory Exam Present: decreased breath sounds. Absent: respiratory distress, rhonchi, stridor, wheezes, crackles - Routine Cardiovascular Exam Present: RRR, no murmur - Routine Abdominal Exam Present: soft, normoactive bowel sounds, non distended, non tender - Routine Extremities Exam Present: no edema, pulses intact. Absent: cyanosis, clubbing - Routine Skin Exam Present: dry, warm - Routine Neurological Exam Present: alert, oriented X3, CN II-XII intact, moving all extremities, vision grossly intact, hearing grossly intact. Absent: motor deficit - Routine Psychiatric Exam Present: normal affect, normal thought process, cooperative, good insight. Absent: anxious Results - Labs CBC & Chem 7: 08/11/17 15:32 08/11/17 15:32 Assessment and Plan (1) Atrial fibrillation with RVR Current visit: Yes Status: Acute DVT Prophylaxis: SCD's Resuscitation Status: Full Code Assessment and Plan: Assessment Afib with RVR - converted to NSR in ED Recent lobectomy for cancer removal Leukocytosis Elevated lactate - no evidence for sepsis Type II DM HTN HDL OA Obesity with BMI 33.2 Plan OBS in CCU TELE. Serial enzymes. Consult with Dr Murray secondary to Afib with RVR. He recommend low boluses of diltiazem if needed - avoid hypotension. Diltiazem drip if needed. Hold on anticoagulation for now due to effusion from recent lobectomy. Recheck CXR in am. IVF of 1/2NS at 75cc/hr for renal protection due to IV dye. Recheck plasma lactate. Hold Metformin due to IV dye. Monitor blood sugars. Recheck CBC in am due to leukocytosis. Will recheck BMP in am due to IV contrast. Check TSH due to afib. Full code as per her request. Care to return to Dr Moss at time of discharge from [facility]. Hospital Course Summary Disclaimer: The visit summary below is not to be considered part of the above Progress Note. Hospital Course: 08/11/17 OBS Assessment Afib with RVR - converted to NSR in ED Recent lobectomy for cancer removal Leukocytosis Elevated lactate - no evidence for sepsis Type II DM HTN HDL OA Obesity with BMI 33.2 Plan OBS in CCU TELE. Serial enzymes. Consult with Dr Murray secondary to Afib with RVR. He recommend low boluses of diltiazem if needed - avoid hypotension. Diltiazem drip if needed. Hold on anticoagulation for now due to effusion from recent lobectomy. Recheck CXR in am. IVF of 1/2NS at 75cc/hr for renal protection due to IV dye. Recheck plasma lactate. Hold Metformin due to IV dye. Monitor blood sugars. Recheck CBC in am due to leukocytosis. Will recheck BMP in am due to IV contrast. Check TSH due to afib. Full code as per her request. Care to return to Dr Moss at time of discharge from [facility].
[2017-08-11] MEDS: PANTOPRAZOLE 40 MG TABLET PO SCH (20:36)
[2017-08-11] MEDS: 1/2 NS 1,000 ML IV SCH (20:37)
[2017-08-11 21:12] VITALS: BMI 33.3
[2017-08-12] MEDS: DILTIAZEM 60 MG PO SCH ×2 (08:37→20:18)
[2017-08-12] MEDS: LEVOTHYROXINE 88 MCG TABLET PO SCH (08:39)
[2017-08-12] MEDS: CITALOPRAM 20 MG TABLET PO SCH (08:39)
[2017-08-12] MEDS ORDERED: ALPRAZolam 0.5 MG TABLET PO PRN (10:20)
[2017-08-12] MEDS: 1/2 NS 1,000 ML IV SCH (11:01)
--- NOTE | 2017-08-12 11:17 | Progress Note ---
Subjective: Feeling much better today. Has been in sinus rhythm since receiving diltiazem in the ED. Mildly anxious, would like to go home today but has not been up and around at all. Discussed monitoring and discussed starting diltiazem. She is willing to see the global program director outpatient. Discussed risks of not being on AC as well as risk of starting xarelto when she had a recent lung biopsy and bleeding. She would prefer to hold on AC for now. Objective Vital signs: Temperature 98.3 F 08/12/17 08:00 Pulse Rate 81 08/12/17 09:00 Respiratory Rate 26 H 08/12/17 09:00 Blood Pressure 136/61 08/12/17 09:00 Pulse Oximetry 100 08/12/17 09:00 Rhythm: Normal Sinus Rhythm Height/Weight/BMI: Height 1.68 m Weight 91.8 kg Body Mass Index 33.3 - Constitutional Present: no acute distress, well nourished, well developed - Routine HEENT Exam Head: Present: normocephalic, atraumatic Eye: Present: EOMI, PERRL - Routine Respiratory Exam Present: CTA bilaterally. Absent: accessory muscle use - Routine Cardiovascular Exam Present: RRR. Absent: murmur, rubs - Routine Abdominal Exam Present: soft, non distended, non tender - Routine Extremities Exam Present: pulses intact. Absent: edema - Routine Musculoskeletal Exam Musculoskeletal: Present: no tenderness - Routine Skin Exam Present: intact, dry. Absent: rash - Routine Neurological Exam Present: alert, oriented X3 - Routine Psychiatric Exam Present: normal affect, anxious Results - Labs CBC & Chem 7: 08/12/17 04:07 08/12/17 04:07 - Impressions CXR reviewed from this morning and unchanged from previous; small R effusion, subcutaneous air diffusely, no infiltrations or other findings. Assessment and Plan DVT Prophylaxis: SCD's Resuscitation Status: Full Code Assessment and Plan: Assessment Afib with RVR - converted to NSR in ED Recent lobectomy for cancer removal Leukocytosis Elevated lactate - no evidence for sepsis Type II DM HTN HDL OA Obesity with BMI 33.2 Plan OBS in CCU TELE. Serial enzymes. Consult with Dr Murray secondary to Afib with RVR. He recommend low boluses of diltiazem if needed - avoid hypotension. Diltiazem drip if needed. Hold on anticoagulation for now due to effusion from recent lobectomy. Recheck CXR in am. IVF of 1/2NS at 75cc/hr for renal protection due to IV dye. Recheck plasma lactate. Hold Metformin due to IV dye. Monitor blood sugars. Recheck CBC in am due to leukocytosis. Will recheck BMP in am due to IV contrast. Check TSH due to afib. Full code as per her request. Care to return to Dr Moss at time of discharge from [facility]. Hospital Course Summary Disclaimer: The visit summary below is not to be considered part of the above Progress Note. Hospital Course: 08/11/17 OBS Assessment Afib with RVR - converted to NSR in ED Recent lobectomy for cancer removal Leukocytosis Elevated lactate - no evidence for sepsis Type II DM HTN HDL OA Obesity with BMI 33.2 Plan OBS in CCU TELE. Serial enzymes. Consult with Dr Murray secondary to Afib with RVR. He recommend low boluses of diltiazem if needed - avoid hypotension. Diltiazem drip if needed. Hold on anticoagulation for now due to effusion from recent lobectomy. Recheck CXR in am. IVF of 1/2NS at 75cc/hr for renal protection due to IV dye. Recheck plasma lactate. Hold Metformin due to IV dye. Monitor blood sugars. Recheck CBC in am due to leukocytosis. Will recheck BMP in am due to IV contrast. Check TSH due to afib. Full code as per her request. Care to return to Dr Moss at time of discharge from [facility]. 08/12/17 11:19 Assessment Afib with RVR - converted to NSR in ED, no previous history, TSH normal Hypotension after IV diltiazem, improved currently Recent lobectomy for cancer removal; admitted at [facility] on 08/04 for several days Leukocytosis, improved Elevated lactate - no evidence for sepsis, presumably secondary to afib and improved Type II DM HTN HDL OA Obesity with BMI 33.2 Generalized anxiety, uses alprazolam as an outpatient per her report Plan Move out of the ICU today Continue to monitor on telemetry Dr. Hernandez consulted but not available this weekend; will need outpatient cardiology evaluation Hold on anticoagulation for now due to effusion from recent lobectomy; discussed risk and benefit with patient Hold further IVF and monitor renal function Start diltiazem 60 mg SR BID and monitor blood pressures and HR. Ambulate today to ensure she stays in sinus rhythm with oral diltiazem. Hold Metformin due to IV dye. Monitor blood sugars. Follow pending blood cultures (NGTD) Full code as per her request. Care to return to Dr Moss at time of discharge from [facility]
[2017-08-12] MEDS ORDERED: DICLOFENAC 1% TOP GEL 100gm TP PRN (13:30)
--- NOTE | 2017-08-12 19:38 | Cardiology Consult Note ---
History of Present Illness Consult reason: atrial fibrillation Chief complaint: pre-syncope History of present illness: 72 yo female presents to [facility] ED for presyncopal episode . she was found to be in new onset a fib RVR. pt had a tumor on her lung for which she underwent a L lower lobectomy Aug 04 2017, she was discharged from [facility] on Aug 10. she denies any prior known heart disease or afib. aug 11: pt states around 1000 she had a watery BM and when she stood up from the toilet she felt like she was going to pass out, she felt lightheaded, dizzy , slightly nauseous. she made it to her bed which was about 5 feet away and laid down for 20 min; she states she felt "drained and like I wasn't in my body. " denies LOC, vision changes, blackout vision, CP, palpitations. her homehealth aid came at 1100. pt got up to have another BM and this time she felt like she was going to pass out on before standing up; she was helped to the recliner and called an ambulance. pt states when the ambulance arrived her HR was in the 200s. pt denies weakness, fever, chills or stroke like symptoms or history nof the same. denies history of afib, WA, HTN, cardiac issues, stroke. denies alcohol and drug use. quit smoking tobacco 10-15 years ago, used to smoke 2 PPD from age [age]. ED Hospital course: Pt given metoprolol IV 5mg metoprolol x2 without significant change in her rate. Diltiazem bolus and drip then started and titrated to a rate of 25mg/hr over the space of 50 minutes. No significant change in pts rate; BP dropped to 80-90's so she received IVF with improvement of BP. Pt began to c/o 'funny feeling'; pt had a reportedly cardiac pause of appx 5 secs and became diaphoretic. Diltiazem drip stopped. Pt was reassessed; cont to be stable. . I was contacted by Dr Trotter and recommended restarting IV Diltizem gtt w/o bolus ,at 10 mg/hr to help control HR in the 150's ,now that BP was improving following IVF . also giving IV Digoxin and possibly considering IV Amio if necessary and contact me if additional difficulties are encountered after above also I reccomended rule out pulmonary embolus checking a TSH and obtaining an echocardiogram .CT angiogram of the chest in ER was negative for PE .no antecubital admission was started due to recent surgery. Patient converted back to sinus rhythm in emergency department was admitted to CCU she was transitioned from IV to oral diltiazem, see orders, WA was ruled out. Patient had a stable course in CCU and was just transferred out to the floor treated with for additional observation was asked to consult the patient for further management and recommendations. If he patient is to be quite comfortable without any angina no further dizziness or presyncope and denies palpitations and dyspnea feels quite well . Rx. telemetry strips available for my review don't show any significant pauses. aug 12: pt states she feels much better, denies cp, chest pressure/tightness, palpitations, soa, dyspnea, syncope, lightheadedness, dizziness. she has been up walking and took a shower today. Review of Systems All systems PM: 10-point ROS was reviewed, no additional remarkable complaints except - Constitutional Constitutional: Present: fatigue. Absent: fever(s) - EENMT Eyes: Absent: change in vision, loss of vision - Cardiovascular Cardiovascular: Present: other (+pre-syncope, lightheaded, dizzy), as per HPI. Absent: chest pain, palpitations, syncope, dyspnea on exertion - Respiratory Respiratory: Present: as per HPI. Absent: dyspnea - Gastrointestinal Gastrointestinal: Present: diarrhea, nausea. Absent: abdominal pain, vomiting - Neurological Neurological: Absent: focal weakness, loss of vision, weakness [facility] Medical History (Last Reviewed 05/24/17 @ 10:25 by Kyle Anderson MD) Arthritis (Acute Medical) Diabetes mellitus, type II (Acute Medical) High blood pressure (Acute Medical) High cholesterol (Acute Medical) Medical History Updates: Lung CA Surgical History: Cholecystectomy-2013. LLL Lobectomy Jul 2017 Family History: Family History (Last Reviewed 05/24/17 @ 10:25 by Kyle Anderson MD) Mother Breast cancer Father Stroke Deep vein thrombosis Son Melanoma Unknown Breast cancer Lung cancer - Social History Smoking status: Former smoker Packs per day: 2 Quit date: 08/12/04 Substance use type: does not use Alcohol intake frequency: does not drink Household members: spouse Previous occupational history: worked with domestic abuse cases Does patient use chewing tobacco?: No Medications Home Medications Medication Instructions Recorded Confirmed Type Levothyroxine Sodium 88 mcg PO DAILY #0 02/08/13 08/11/17 History Pantoprazole Sodium 40 mg PO HS #0 02/08/13 08/11/17 History Metformin HCl 500 mg PO DAILY #0 06/18/16 08/11/17 History Citalopram [Celexa] 20 mg PO DAILY 04/16/17 08/11/17 History Vit C/Vit E/Lutein/Min/[place]-3 1 cap PO DAILY 04/16/17 08/11/17 History [Ocuvite Softgel] Acetaminophen [Acetaminophen ER] 650 mg PO Q4H PRN 08/11/17 08/11/17 History Diclofenac [Voltaren] 1 applic TOP QID PRN 08/11/17 08/11/17 History Gluc Lyn/MSM/Magnesium/Vit C 1 cap PO BID 08/11/17 08/11/17 History [Glucosamine Complex-MSM Cap] Hydrocodone/APAP 5/325 [Pace 1 - 2 tab PO Q4-6HR PRN 08/11/17 08/11/17 History 5/325] Psyllium [Metamucil] 1 packet PO HS PRN 08/11/17 08/11/17 History Allergies Allergy/AdvReac Type Severity Reaction Status Date / Time No Known Drug Allergies Allergy Unknown Verified 08/11/17 15:50 Exam Vital signs: Temperature 97.8 F 08/12/17 19:23 Pulse Rate 96 08/12/17 19:23 Respiratory Rate 16 08/12/17 19:23 Blood Pressure 126/61 08/12/17 19:23 Pulse Oximetry 97 08/12/17 19:23 Narrative: Initial EKG: A fib vent rate 116 without acute STT changes of ischmia or diagnostic Q waves subsequent EKG: NSR NL EKG . Tele strip: * aug 11 1505: afib HR 184 * aug 11 1622: afib with a 2 sec pause to convert to NSR * aug 12: NSR, no further pauses or bradycardia since converting. CTA: no PE noted CXR: no cardiomegaly, left sided subcutaneous emphysema, slight prominent interstitial markings w/o kristen CHF.blunting of L costophrenic angle . no pneumothorax noted. All labs reviewed in detail. troponin WNL, TSH WNL. Hgb 9- Microcytic anemia. - Constitutional no acute distress, well nourished, well developed, cooperative Comments: VSS - Routine HEENT Exam Head: Present: normocephalic, atraumatic ENT: Present: mucous membranes moist - Routine Neck Exam Absent: JVD, carotid bruit, thyromegaly - Routine Chest/Breast/Axilla Exam Chest wall: Present: tenderness (L ribcage d/t surgery) - Routine Respiratory Exam Present: CTA bilaterally. Absent: accessory muscle use, dyspnea, respiratory distress - Routine Cardiovascular Exam Present: RRR, murmur (KATHARINE II/) - Routine Abdominal Exam Present: soft, normoactive bowel sounds, non distended, non tender - Routine Extremities Exam Present: pulses intact. Absent: cyanosis, clubbing, edema - Routine Skin Exam Present: intact, dry, warm. Absent: cyanosis, erythema - Routine Neurological Exam Present: alert, oriented X3, CN II-XII intact, moving all extremities, normal speech. Absent: motor deficit, facial asymmetry - Routine Psychiatric Exam Present: normal affect, normal thought process Results 08/13/17 05:12 08/13/17 05:12 Intake and Output 08/12/17 08/12/17 08/12/17 06:59 14:59 22:59 Intake Total 200 / 200 Balance 200 / 200 Intake: Oral 200 / 200 serial troponins and TSH were WNL Assessment and Plan - Assessment and Plan (1) Status post lobectomy of lung Status: Acute (2) Microcytic anemia Status: Acute (3) Atrial fibrillation with RVR Status: Acute 1. As discussed with ER Physician: * R/O PE * IV fluids for hypotension * Continue diltiazem drip for rate control * TSH level * Serial troponin * If pt develops refractory hypotension, consider use of levophed or phenylephrine 2. No anticoagualnt at this time d/t post op microcytic anemia and risk of bleed following recent lobectomy 3. continue diltiazem PO 4. signing off on pt; outpt cardiac workup will be scheduled this upcoming week including echo, 48 hour holter monitor and a return appt 2 wks later. will consider treadmill test. - Hospital Course Summary Disclaimer: The visit summary below is not to be considered part of the above Progress Note. Hospital Course: 08/11/17 OBS Assessment Afib with RVR - converted to NSR in ED Recent lung lobectomy for cancer removal Leukocytosis Elevated lactate - no evidence for sepsis Type II DM HTN HDL OA Obesity with BMI 33.2 08/12/17 11:19 Assessment Afib with RVR - converted to NSR in ED, no previous history, TSH normal Hypotension after IV diltiazem, resolved. Recent lobectomy for cancer removal; recently discharged from [facility] about 08/03 Leukocytosis, improved Elevated lactate - no evidence for sepsis, presumably secondary to afib and improved Type II DM HTN HDL OA Obesity with BMI 33.2 Generalized anxiety, uses alprazolam as an outpatient per her report Plan see HPI for consult with Dr Trotter ED and plan Agree with Moving out of the ICU today Continue to monitor on telemetry Hold off anticoagulation for now due to bleeding risk from recent lobectomy and microcytic anemia.I have considered and discussed risk and benefit with patient in detail and she s in agreemnt. Agree with your Rx with diltiazem 60 mg SR BID and monitor blood pressures and HR. Ambulate today to ensure she stays in sinus rhythm with oral diltiazem. Agree with plans to Hold Metformin due to IV dye . Monitor blood sugars. outpt echocardiogram and 48 hr holter monitor to look for recurrence of a fib and guide further Rx. office f/u with me in 2 wks. Care to return to Dr Moss at time of discharge from [facility] 08/15/17 13:18
[2017-08-12] MEDS: PANTOPRAZOLE 40 MG TABLET PO SCH (20:17)
[2017-08-12] MEDS: HYDROCODONE/APAP 5mg/325mg TABLET PO PRN ×2 (20:17→23:11)
[2017-08-13 07:34] VITALS: BP 124/66; RESP 18; TEMP 97.6; O2SAT 97
[2017-08-13 08:12] VITALS: PULSE 80
[2017-08-13] MEDS: CITALOPRAM 20 MG TABLET PO SCH (08:16)
[2017-08-13] MEDS: LEVOTHYROXINE 88 MCG TABLET PO SCH (08:16)
[2017-08-13] MEDS: DILTIAZEM 60 MG PO SCH (08:22)
[2017-08-13] MEDS ORDERED: DiltiaZEM IR 30 MG TABLET PO ONE (09:47)
--- NOTE | 2017-08-13 10:10 | XRay Report ---
Indication: Left flank pain PROCEDURE: XR KUB: Encounter: Initial Comparison: None Findings: The bowel gas pattern is nonobstructive and nonspecific. Gas is seen diffusely throughout small and large bowel to the level of the rectum. There is a single mildly prominent loop of small bowel in the left abdomen measuring up to 3.5 cm in diameter. Moderate stool is seen throughout the colon. The bony structures are grossly unremarkable. Contrast material in the renal collecting system and bladder. Subcutaneous emphysema in the left chest wall and upper abdomen. Impression: Possible mild ileus. .
--- NOTE | 2017-08-13 10:13 | Discharge Instructions ---
Discharge Plan - Med Rec/Dispo Referrals/Follow Up: Skye Hernandez MD [Physician] - 1 Week Marcela Moss DO [Family Provider] - 2 Weeks Prescriptions: New DiltiaZEM SR [Cardizem Sr] 90 mg PO BID #60 cap Continue Metformin HCl 500 mg PO DAILY #0 Vit C/Vit E/Lutein/Min/[place]-3 [Ocuvite Softgel] 1 cap PO DAILY Citalopram [Celexa] 20 mg PO DAILY Hydrocodone/APAP 5/325 [[place] 5/325] 1 - 2 tab PO Q4-6HR PRN PRN Reason: Pain Acetaminophen [Acetaminophen ER] 650 mg PO Q4H PRN PRN Reason: Pain Gluc Lyn/MSM/Magnesium/Vit C [Glucosamine Complex-MSM Cap] 1 cap PO BID Pantoprazole Sodium 40 mg PO HS #0 Levothyroxine Sodium 88 mcg PO DAILY #0 Diclofenac [Voltaren] 1 applic TOP QID PRN PRN Reason: Pain Psyllium [Metamucil] 1 packet PO HS PRN PRN Reason: Prn Orders Discharge Instructions/Outpatient Orders: Final Provider Discharge Instructions Location: Determined By Patient - Disposition 01 Discharged Home, Self-Care
--- NOTE | 2017-08-13 10:18 | CT Scan Report ---
Indication: Tachy; a-fib PROCEDURE: CT angio pulm emboli: Encounter: Initial Comparison: Chest x-ray from the same date Technique: Axial CT pulmonary angiographic phase images were performed through the chest after the administration of intravenous contrast. Coronal and Sagittal MIP reconstructed images were created and reviewed. Automated Exposure Control and Iterative Reconstruction dose reducing techniques were utilized. Contrast: Omnipaque 350 70 mL Findings: Pulmonary arteries: Exam is diagnostic to the subsegmental pulmonary arterial level. No filling defects identified to suggest a pulmonary embolus. Other findings: Diffuse subcutaneous emphysema throughout the neck and left chest. Two tiny foci of gas within the left pleural effusion. No clinically significant pneumothorax. Small amount of pneumomediastinum. Small left pleural effusion and mild atelectasis in the left lower lobe. No pulmonary mass. Central airways are patent with some mucus or debris in the trachea. No axillary or mediastinal adenopathy. Upper abdomen shows no acute findings. Impression: No pulmonary embolus. Extensive subcutaneous air and small amount pneumomediastinum probably due to the recent surgery with gas dissecting into the mediastinum. Superimposed acute tracheal or esophageal rupture is statistically unlikely. There is a preliminary report by virtual radiologic. .
--- NOTE | 2017-08-13 10:21 | Discharge Summary ---
Discharge Information Date of admission: 08/12/17 15:33 Anticipated date of discharge: 08/13/17 Attending Physician: Harris Green MD Primary care physician: Marcela Moss DO Consults: Dr. Randolph Hernandez, cardiology - Discharge Diagnosis (1) Atrial fibrillation with RVR Status: Acute (2) Microcytic anemia Status: Acute (3) Status post lobectomy of lung Status: Acute - Laboratory Labs: 08/13/17 05:12 08/13/17 05:12 - Radiology Radiology: Date of Exam: 08/11/17 Ordering Provider: Saleem Trotter DO Type of Exam(s): XR chest 1V Reason for Exam(s): New-onset A-fib; recent lobectomy Indication: New-onset A-fib; recent lobectomy PROCEDURE: XR chest 1V: Encounter: Initial Comparison: June 18, 2016 Findings: Extensive subcutaneous emphysema in the neck and left chest. This partially obscures the left lung field. I do not identify any significant left-sided pneumothorax. The right lung appears clear. Small left pleural effusion. No right-sided effusion. Heart size is stable. Slight leftward mediastinal shift probably due to volume loss from the patient's reported recent lobectomy. Pulmonary vascularity is grossly normal but somewhat obscured on the left side. Impression: Extensive subcutaneous emphysema reportedly from a recent lobectomy procedure. No visible pneumothorax or focal pneumonia. History of Present Illness HPI: 72 y/o female presents to [facility] via EMS secondary to palpitations and weakness. Was found to have lung cancer in June of this year. Underwent lobectomy for tumor removal on 08/04 at [facility]. She was discharged yesterday and returned home at 1600. Did well last night-minimal pain. This morning she had a bowel movement but when she stool up from the stool she thought she would pass out. Went to lay down. Home Health came to check on her. Was doing well until got up again to go to the bathroom and again felt like she would pass our. Nurse check pulse and erratic - EMS activated. Initial HR 223. EMS provided treatments, but could not get HR down. Taken to ED where was in afib with RVR. HR did decrease (and converted to NSR) in ED. BP dropped with diltiazem. Dr Hernandez (coil connector cardilogy) contacted and recommended. Patient placed in OBS for evaluation. Objective Vital signs: Temperature 97.6 F 08/13/17 07:34 Pulse Rate 80 08/13/17 08:00 Respiratory Rate 18 08/13/17 07:34 Blood Pressure 124/66 08/13/17 07:34 Pulse Oximetry 97 08/13/17 07:34 Rhythm: Normal Sinus Rhythm Height/Weight/BMI: Weight 93.3 kg - Constitutional Present: no acute distress, well nourished, well developed, cooperative - Routine HEENT Exam Head: Present: normocephalic, atraumatic Eye: Present: EOMI, PERRL ENT: Present: mucous membranes moist, oropharynx clear - Routine Respiratory Exam Present: CTA bilaterally. Absent: accessory muscle use, decreased breath sounds - Routine Cardiovascular Exam Present: RRR. Absent: murmur - Routine Abdominal Exam Present: soft, non distended, non tender - Routine Extremities Exam Present: pulses intact, normal capillary refill. Absent: edema - Routine Skin Exam Present: intact, dry, warm. Absent: rash - Routine Neurological Exam Present: alert, oriented X3, normal speech - Routine Psychiatric Exam Present: normal affect, normal thought process Hospital Course This is a general summary of the patient's hospital course. For more details refer to the complete medical record. Hospital course: 08/11/17 OBS Assessment Afib with RVR - converted to NSR in ED Recent lobectomy for cancer removal Leukocytosis Elevated lactate - no evidence for sepsis Type II DM HTN HDL OA Obesity with BMI 33.2 Plan OBS in CCU TELE. Serial enzymes. Consult with Dr Murray secondary to Afib with RVR. He recommend low boluses of diltiazem if needed - avoid hypotension. Diltiazem drip if needed. Hold on anticoagulation for now due to effusion from recent lobectomy. Recheck CXR in am. IVF of 1/2NS at 75cc/hr for renal protection due to IV dye. Recheck plasma lactate. Hold Metformin due to IV dye. Monitor blood sugars. Recheck CBC in am due to leukocytosis. Will recheck BMP in am due to IV contrast. Check TSH due to afib. Full code as per her request. Care to return to Dr Moss at time of discharge from [facility]. 08/12/17 11:19 Assessment Afib with RVR - converted to NSR in ED, no previous history, TSH normal Hypotension after IV diltiazem, improved currently Recent lobectomy for cancer removal; admitted at [facility] on 08/04 for several days Leukocytosis, improved Elevated lactate - no evidence for sepsis, presumably secondary to afib and improved Type II DM HTN HDL OA Obesity with BMI 33.2 Generalized anxiety, uses alprazolam as an outpatient per her report Plan Move out of the ICU today Continue to monitor on telemetry Dr. Hernandez consulted but not available this weekend; will need outpatient cardiology evaluation Hold on anticoagulation for now due to effusion from recent lobectomy; discussed risk and benefit with patient Hold further IVF and monitor renal function Start diltiazem 60 mg SR BID and monitor blood pressures and HR. Ambulate today to ensure she stays in sinus rhythm with oral diltiazem. Hold Metformin due to IV dye. Monitor blood sugars. Follow pending blood cultures (NGTD) Full code as per her request. Care to return to Dr Moss at time of discharge from [facility] On 08/13 the patient was feeling well, has been in sinus rhythm throughout her ICU stay and this morning. Heart rate increases to 110s when up and ambulating and BP stable so diltiazem has been increased to 90 mg SR BID. She is tolerating the medication well and not starting any anticoagulation at this time due to recent lobectomy and effusion. She will follow up with Dr. Hernandez this week for further care and outpatient cardiology evaluation. Time spent with patient: discharge greater than 30 minutes DVT Prophylaxis: SCD's Discharge Plan - Med Rec/Dispo Referrals/Follow Up: Skye Hernandez MD [Physician] - 1 Week Marcela Moss DO [Family Provider] - 2 Weeks Prescriptions: New DiltiaZEM SR [Cardizem Sr] 90 mg PO BID #60 cap Continue Metformin HCl 500 mg PO DAILY #0 Vit C/Vit E/Lutein/Min/Leon-3 [Ocuvite Softgel] 1 cap PO DAILY Citalopram [Celexa] 20 mg PO DAILY Hydrocodone/APAP 5/325 [[place] 5/325] 1 - 2 tab PO Q4-6HR PRN PRN Reason: Pain Acetaminophen [Acetaminophen ER] 650 mg PO Q4H PRN PRN Reason: Pain Gluc Lyn/MSM/Magnesium/Vit C [Glucosamine Complex-MSM Cap] 1 cap PO BID Pantoprazole Sodium 40 mg PO HS #0 Levothyroxine Sodium 88 mcg PO DAILY #0 Diclofenac [Voltaren] 1 applic TOP QID PRN PRN Reason: Pain Psyllium [Metamucil] 1 packet PO HS PRN PRN Reason: Prn Orders Discharge Instructions/Outpatient Orders: Final Provider Discharge Instructions Location: Determined By Patient - Disposition 01 Discharged Home, Self-Care
--- NOTE | 2017-08-13 10:40 | XRay Report ---
Indication: F/U PROCEDURE: XR chest 1V: Encounter: Initial Comparison: August 11, 2017 Findings: Chest is stable in appearance with diffuse subcutaneous emphysema in the neck and left chest. No visible pneumothorax. Heart size and mediastinal contours are stable. Small left pleural effusion is unchanged. Impression: Stable appearance of the chest. .
[2017-08-13] MEDS ORDERED: DiltiaZEM SR 90 MG CAPSULE PO SCH ×2 (21:00)
== END 2017-08-13 10:45 | disposition home health service (06) | DRG 309 ==
LOC: ED 14:59 → CCU 14:59 → SRG 08-12 13:55
PROVIDERS: ADMIT Hospitalist; ATTEND Hospitalist